=== PATIENT | female | born 1980 | race Caucasian/White ===

== ENCOUNTER → 2018-02-26 09:24 | Outpatient (CLI) | payer OTHER, SELFPAY ==
[2018-02-26 10:07] LABS: Basophils % 0.2 % (0.1-2.0); Eosinophils % 0.6 % (0.1-12.0); Hematocrit 48.8 % (37.0-47.0); Hemoglobin 15.9 g/dL (12.2-16.2); Lymphocytes # 1.9 K/mm3 (0.7-4.5); Lymphocytes % 25.8 K/mm3 (10-50); Mean Corpuscular HGB Conc 32.6 g/dL (31.8-35.4); Mean Corpuscular Hemoglobin 29.3 pg (27.0-31.2); Mean Corpuscular Volume 89.9 fl (81-99); Mean Platelet Volume 7.2 fl (7.4-10.4); Monocytes # 0.4 K/mm3 (0.1-1.0); Monocytes % 4.9 % (1.7-9.3); Neutrophils # 4.9 K/mm3 (1.8-7.8); Neutrophils % 68.5 % (37.0-80.0); Platelet Count 302 K/mm3 (142-424); Red Blood Count 5.43 M/mm3 (4.20-5.40); White Blood Count 7.2 K/mm3 (4.8-10.8)
[2018-02-26 12:09] LABS: Alanine Aminotransferase 20 U/L (12-78); Albumin Level 4.4 gm/dL (3.4-5.0); Albumin/Globulin Ratio 1.3 (1.1-1.8); Alkaline Phosphatase 95 U/L (46-116); Anion Gap 14.1 mEq/L (5-15); Aspartate Amino Transferase 19 U/L (15-37); Bilirubin,Total 0.8 mg/dL (0.2-1.0); Blood Urea Nitrogen 14 mg/dL (7-18); Calcium 9.4 mg/dL (8.5-10.1); Carbon Dioxide 28 mmol/L (21.0-32.0); Chloride 100 mmol/L (98-107); Creatinine,Serum 0.65 mg/dL (0.55-1.02); Estimated Glomerular Filt Rate 102 ml/min (>60); Free T4 (Free Thyroxine) 1.08 ng/dl (0.76-1.46); GFR (African American) 123 ML/MIN (>60); Globulin 3.4 gm/dl (1.3-3.2); Glucose 79 mg/dL (74-106); Potassium 4.1 mmoL/L (3.5-5.1); Sodium 138 mmol/L (136-145); Thyroid Stimulating Hormone 1.22 uIU/ml (0.358-3.740); Total Protein,Serum 7.8 gm/dL (6.4-8.2)
[2018-02-28 10:47] LABS: Vitamin D 25 Hydroxy 24.5 ng/mL (30.0-100.0)
== END ==
PROVIDERS: Visit Provider Nurse Practitioner Family
DX: L65.9 Nonscarring hair loss, unspecified (principal); R53.83 Other fatigue; E55.9 Vitamin D deficiency, unspecified
CPT/HCPCS: 36415; 80053; 82652; 84439; 84443; 85025

== ENCOUNTER → 2018-03-28 12:49 | Outpatient (CLI) | payer OTHER, SELFPAY ==
[2018-03-28 13:20] LABS: Basophils % 0.1 % (0.1-2.0); Eosinophils # 0.1 K/mm3 (0.0-0.4); Eosinophils % 0.6 % (0.1-12.0); Hematocrit 45.9 % (37.0-47.0); Hemoglobin 15.1 g/dL (12.2-16.2); Lymphocytes # 1.9 K/mm3 (0.7-4.5); Lymphocytes % 22.5 K/mm3 (10-50); Mean Corpuscular Hemoglobin 29.3 pg (27.0-31.2); Mean Corpuscular Volume 88.8 fl (81-99); Mean Platelet Volume 6.8 fl (7.4-10.4); Monocytes # 0.3 K/mm3 (0.1-1.0); Monocytes % 3.3 % (1.7-9.3); Neutrophils # 6.2 K/mm3 (1.8-7.8); Neutrophils % 73.4 % (37.0-80.0); Platelet Count 292 K/mm3 (142-424); Red Blood Count 5.16 M/mm3 (4.20-5.40); Red Cell Distribution Width 13.3 % (11.5-17.5); White Blood Count 8.4 K/mm3 (4.8-10.8)
[2018-03-28 14:32] LABS: Alanine Aminotransferase 19 U/L (12-78); Albumin Level 4.3 gm/dL (3.4-5.0); Albumin/Globulin Ratio 1.3 (1.1-1.8); Alkaline Phosphatase 89 U/L (46-116); Anion Gap 12.1 mEq/L (5-15); Aspartate Amino Transferase 16 U/L (15-37); Bilirubin,Total 0.7 mg/dL (0.2-1.0); Blood Urea Nitrogen 11 mg/dL (7-18); Calcium 9.3 mg/dL (8.5-10.1); Carbon Dioxide 31 mmol/L (21.0-32.0); Chloride 100 mmol/L (98-107); Creatinine,Serum 0.66 mg/dL (0.55-1.02); Estimated Glomerular Filt Rate 100 ml/min (>60); Free Thyroxine Index 2.6 ug/dL (5.93-13.13); GFR (African American) 121 ML/MIN (>60); Globulin 3.2 gm/dl (1.3-3.2); Glucose 119 mg/dL (74-106); Potassium 4.1 mmoL/L (3.5-5.1); Sodium 139 mmol/L (136-145); Total Protein,Serum 7.5 gm/dL (6.4-8.2); Triiodothryronine (T3) Uptake 32 % (31-39)
[2018-03-29 18:41] LABS: Estradiol 208.6 pg/mL (.); FSH 6.5 mIU/mL (.); LH 15.4 mIU/mL (.); Triiodothyronine (T3) Free 3.3 pg/mL (2.0-4.4)
[2018-03-31 15:31] LABS: Testosterone,Free 3.9 pg/mL (0.0-4.2)
[2018-04-03 21:09] LABS: Testosterone, Total, LC/MS 37.3 ng/dL (10.0-55.0)
== END ==
PROVIDERS: Visit Provider Nurse Practitioner Obstetrics & Gynecology
DX: N92.6 Irregular menstruation, unspecified (principal); E03.9 Hypothyroidism, unspecified; R53.83 Other fatigue
CPT/HCPCS: 36415; 80053; 82670; 83001; 83002; 84402; 84403; 84436; 84443; 84479; 84481; 85025

== ENCOUNTER → 2018-12-26 10:43 | Outpatient (CLI) | payer SELFPAY ==
--- NOTE | 2018-12-26 10:50 | MM_ITS ---
MM Dig screening mamm BI w/CAD CAD Screening COMPARISON: None, this is baseline INDICATION: There is a history of breast cancer in a patient maternal grandmother and maternal aunt TECHNIQUE: Standard CC and MLO images were obtained. R2 CAD reviewed. FINDINGS: Scattered fibroglandular densities are seen throughout both breasts. There is a mole marker right breast. There is no suspicious lesion in either breast and there are no suspicious microcalcifications. IMPRESSION: Fibrofatty parenchyma no suspicious lesion seen BI-RADS Category: 1 Negative RECOMMENDED FOLLOW-UP: 1YR - 1 YEAR FOLLOW-UP (A letter has been sent to the patient regarding results of the study.)
== END ==
PROVIDERS: PCP Internal Medicine Adolescent Medicine; Visit Provider Nurse Practitioner Obstetrics & Gynecology
DX: Z80.3 Family history of malignant neoplasm of breast (principal); Z12.31 Encounter for screening mammogram for malignant neoplasm of breast
CPT/HCPCS: 77067

== ENCOUNTER → 2020-07-25 13:17 | Outpatient (CLI) | payer OTHER, SELFPAY ==
--- NOTE | 2020-07-25 13:17 | US_ITS ---
PROCEDURE: US TRANSVAGINAL CLINICAL INDICATION: heavy painful periods Full periods COMPARISON: No exams were available for comparison FINDINGS: There are multiple nabothian cyst in the cervix the largest at 1.3 cm. The uterus is 8.7 x 4.9 x 5.6 cm with a combined endometrial thickness 15 mm. There is focal increased echogenicity within the central aspect of the endometrium with a surrounding sonolucent area suspicious for a polyp. The central area of increased echogenicity is 8 x 7 mm. The adnexa are unremarkable. The right ovary is 2.2 x 2.2 cm. The left ovary is 3 x 3 cm. There are small bilateral follicles. No cul-de-sac fluid is evident. IMPRESSION: 1. Thickened endometrium with suspected endometrial polyp at approximately 8 x 7 mm Dictated by: Guilherme Schultz MD 07/25/2020 15:51 Guilherme Schultz MD in [place] 07/25/2020 15:51
== END ==
PROVIDERS: PCP Internal Medicine Adolescent Medicine; Visit Provider Nurse Practitioner Obstetrics & Gynecology
DX: N92.0 Excessive and frequent menstruation with regular cycle (principal); N94.6 Dysmenorrhea, unspecified
CPT/HCPCS: 76830

== ENCOUNTER → 2021-09-21 10:43 | Outpatient (CLI) | payer OTHER, SELFPAY | PROVIDERS: PCP Internal Medicine Adolescent Medicine; Visit Provider Nurse Practitioner | DX: Z20.822 Contact with and (suspected) exposure to COVID-19 (principal); U07.1 COVID-19 | CPT/HCPCS: C9803; U0003; U0005 ==

== ENCOUNTER 2021-09-24 01:03 | Emergency (ER) | payer OTHER, SELFPAY ==
[2021-09-24 01:05] VITALS: BP 141/75; PULSE 120; RESP 18; TEMP 38.3; O2SAT 99; BMI 37.8
--- NOTE | 2021-09-24 01:16 | XR_ITS ---
PROCEDURE INFORMATION: Exam: XR Chest Exam date and time: 09/24/2021 1:16 AM Age: 40 years old Clinical indication: Fever and other: Weakness covid; Additional info: Fever covid TECHNIQUE: Imaging protocol: XR of the chest. Views: 1 view. COMPARISON: No relevant prior studies available. FINDINGS: Lungs: Interstitial haziness in both lungs findings concerning for moderate pneumonia. Low lung volumes. Pleural spaces: Unremarkable. No pleural effusion. No pneumothorax. Heart/Mediastinum: Unremarkable. No cardiomegaly. Bones/joints: Unremarkable. IMPRESSION: Interstitial haziness in both lungs findings concerning for moderate pneumonia.
--- NOTE | 2021-09-24 01:17 | ECG_ITS ---
APPROVED REPORT Exam: Resting ECG HR:98 bpm ECG Measurements Heart Rate 98 AXES HI 114 P 18 QRSd 76 QRS -34 QT 334 T 16 QTc 426 Conclusion Normal sinus rhythm Left axis deviation Abnormal ECG Electronically signed by : Stevenson Dupont MD 09/25/2021 20:20:10
[2021-09-24 01:35] LABS: Basophils % 0.6 % (0.1-2.0); Eosinophils % 0.3 % (0.1-12.0); Hematocrit 43.6 % (37.0-47.0); Hemoglobin 14.9 g/dL (12.2-16.2); Lymphocytes # 0.4 K/mm3 (0.7-4.5); Lymphocytes % 12.4 % (10-50); Mean Corpuscular HGB Conc 34.3 g/dL (31.8-35.4); Mean Corpuscular Hemoglobin 29.8 pg (27.0-31.2); Mean Corpuscular Volume 86.9 fl (81-99); Mean Platelet Volume 7.4 fl (7.4-10.4); Monocytes # 0.2 K/mm3 (0.1-1.0); Monocytes % 5.5 % (1.7-9.3); Neutrophils # 2.9 K/mm3 (1.8-7.8); Neutrophils % 81.2 % (37.0-80.0); Platelet Count 189 K/mm3 (142-424); Red Blood Count 5.02 M/mm3 (4.20-5.40); Red Cell Distribution Width 13.8 % (11.5-17.5); White Blood Count 3.6 K/mm3 (4.8-10.8)
[2021-09-24 01:45] LABS: Chloride 101 mmol/L (98-107); Potassium 3.6 mmoL/L (3.5-5.1); Sodium 135 mmol/L (136-145)
[2021-09-24 01:48] LABS: Alanine Aminotransferase 31 U/L (12-78); Albumin Level 4.4 g/dl (3.5-5.0); Albumin/Globulin Ratio 1.6 (1.1-1.8); Alkaline Phosphatase 90 U/L (38-126); Anion Gap 13.6 mEq/L (5-15); Aspartate Amino Transferase 47 U/L (14-36); Bilirubin,Total 0.4 mg/dl (0.2-1.3); Blood Urea Nitrogen 13 mg/dl (7-17); Calcium 8.5 mg/dl (8.4-10.2); Carbon Dioxide 24 mmol/L (22.0-30.0); Creatinine Clearance Estimated 212 mL/min (50-200); Estimated Glomerular Filt Rate 136 ml/min (>60); GFR (African American) 165 ML/MIN (>60); Globulin 2.8 g/dL (1.3-3.2); Glucose 157 mg/dl (74-100); HCG Qualitative, Serum Negative (Negative); Lactic Acid 1.4 mmol/L (0.7-2.1); Total Protein,Serum 7.2 g/dl (6.3-8.2)
[2021-09-24 02:00] VITALS: BP 116/70; PULSE 92; O2SAT 95
--- NOTE | 2021-09-24 02:22 | HMH.EDGENADL ---
ED Disposition Clinical Impression: Pneumonia due to COVID-19 virus, Superimposed infection Disposition: Home, Self-Care Condition on Discharge: Good Instructions: Pneumonia-Adult Additional Instructions: Please continue supportive care at home including drinking plenty of fluids, ibuprofen, Tylenol and Zofran for nausea and vomiting. You have also been prescribed antibiotics for suspected superimposed bacterial infection in addition to your COVID-19 pneumonia. Please take antibiotics as prescribed. If your condition worsens or any of concerning symptoms that we discussed arise, such as but not limited to, inability to tolerate intake by mouth, development of chest pain, development of dyspnea, development of unilateral leg swelling, please return promptly to the nearest emergency department for reassessment. Otherwise, please see your primary care doctor within 1 week to assess for improvement. Referrals: Stevenson Dupont MD [Primary Care Provider] - - Critical Care Critical Care Time: No Attestation: On 09/24/21, the high probability of a clinically significant, sudden or life threatening deterioration of the following system(s) required my full and direct attention, intervention and personal management. The time I documented below is in addition to time spent performing reported procedures but includes the following listed in this critical care notation. Medical Decision Making - Beny Inquiry Pt receiving controlled substance: No Vital Signs: 09/24/21 01:05 09/24/21 02:00 Temperature 100.9 F H Temperature Source Oral Pulse Rate 92 H Pulse Rate [Right] 120 H Respiratory Rate 18 Blood Pressure 116/70 Blood Pressure [Right Arm] 141/75 H Blood Pressure Mean 82 Blood Pressure Mean [Right Arm] 97 02 Sat by Pulse Oximetry 99 95 - Lab Data Lab results reviewed: Yes: I reviewed the patient's lab results. Lab Results 09/24/21 01:27: WBC 3.6 L, RBC 5.02, Hgb 14.9, Hct 43.6, MCV 86.9, MCH 29.8, MCHC 34.3, RDW 13.8, Plt Count 189, MPV 7.4, Neut % (Auto) 81.2 H, Lymph % (Auto) 12.4, [place] % (Auto) 5.5, Eos % (Auto) 0.3, Baso % (Auto) 0.6, Neut # (Auto) 2.9, Lymph # (Auto) 0.4 L, [place] # (Auto) 0.2, Eos # (Auto) 0.0, Baso # (Auto) 0.0 09/24/21 01:27: Sodium 135 L, Potassium 3.6, Chloride 101, Carbon Dioxide 24, Anion Gap 13.6, BUN 13, Creatinine 0.50 L, Estimated Creat Clear 212, Estimated GFR 136, Est GFR ( Amer) 165, Glucose 157 H, Calcium 8.5, Total Bilirubin 0.4, AST 47 H, ALT 31, Alkaline Phosphatase 90, Total Protein 7.2, Albumin 4.4, Globulin 2.8, Albumin/Globulin Ratio 1.6 09/24/21 01:27: Serum HCG, Qual Negative 09/24/21 01:27: Lactate 1.4 Result diagrams: 09/24/21 01:27 09/24/21 01:27 Orders (Tests/Meds): ED MEDICATIONS Generic Name Dose Route Start Last Admin Trade Name Freq PRN Reason Stop Dose Admin Lactated Ringer's 1,000 mls @ 999 mls/hr 09/24/21 01:30 09/24/21 01:25 Lactated Ringer's 1000 Ml Bag IV 09/24/21 02:30 999 mls/hr .Q1H1M CARLIE Administration Discontinued Medications Generic Name Dose Route Start Last Admin Trade Name Freq PRN Reason Stop Dose Admin Acetaminophen 1,000 mg 09/24/21 01:18 09/24/21 01:25 Acetaminophen 500mg Tab PO 09/24/21 01:19 1,000 mg ONCE ONE Administration Ketorolac Tromethamine 15 mg 09/24/21 01:18 09/24/21 01:24 Ketorolac 30mg/Ml Vial IV 09/24/21 01:19 15 mg ONCE ONE Administration Ondansetron HCl 4 mg 09/24/21 01:25 09/24/21 01:26 Ondansetron 4mg/2ml Vial IV 09/24/21 01:26 4 mg ONCE ONE Administration - Radiology Data #1 Image(s): Chest, Other FINDINGS: Lungs: Interstitial haziness in both lungs findings concerning for moderate pneumonia. Low lung volumes. Pleural spaces: Unremarkable. No pleural effusion. No pneumothorax. Heart/Mediastinum: Unremarkable. No cardiomegaly. Bones/joints: Unremarkable. IMPRESSION: Interstitial haziness in both lungs findings concer
[2021-09-24 02:30] VITALS: BP 105/65; PULSE 89; O2SAT 95
[2021-09-24 03:19] VITALS: BP 107/65; PULSE 87; RESP 20; TEMP 37.2; O2SAT 96
== END 2021-09-24 04:00 | disposition home or self-care (01) ==
PROVIDERS: Emergency Provider Emergency Medicine; PCP Internal Medicine Adolescent Medicine
DX: U07.1 COVID-19 (principal); J12.82 Pneumonia due to coronavirus disease 2019
CPT/HCPCS: 71045; 80053; 83605; 84703; 85025; 93005; 96365; 96375; 99283; J2405

== ENCOUNTER 2021-09-25 03:35 | Emergency (ER) | payer OTHER, SELFPAY ==
[2021-09-25] VITALS (14 sets, daily range): BP systolic 123–148; BP diastolic 64–97; PULSE 93–107; RESP 16–18; TEMP 37.6; O2SAT 94–100; BMI 27.4
--- NOTE | 2021-09-25 04:13 | HMH.EDGENADL ---
ED Disposition Condition on Discharge: Good - Critical Care Critical Care Time: No <Ave [place] - Last Filed: 09/25/21 08:22> Condition on Discharge: Good - Critical Care Critical Care Time: No <Heri Sullivan - Last Filed: 09/25/21 09:38> Clinical Impression: COVID-19, Dehydration Nausea & vomiting Qualifiers: Vomiting type: unspecified Vomiting Intractability: non-intractable Qualified Code(s): R11.2 - Nausea with vomiting, unspecified Disposition: Home, Self-Care Instructions: DI for Nausea -- Adult Additional Instructions: Tinea supportive care at home including Tylenol, ibuprofen. For nausea and vomiting you may take Zofran together with Phenergan. If your condition worsens or any other concerning symptoms arise, please return to the emergency department. Otherwise, please follow-up with your primary care doctor next week. Prescriptions: Promethazine HCl [Phenergan 25mg tab] 25 mg PO BID #20 tab Transmission Status: Pending to [facility] Referrals: Stevenson Dupont MD [Primary Care Provider] - Attestation: On 09/25/21, the high probability of a clinically significant, sudden or life threatening deterioration of the following system(s) required my full and direct attention, intervention and personal management. The time I documented below is in addition to time spent performing reported procedures but includes the following listed in this critical care notation. Medical Decision Making - Medical Records Medical records reviewed: Yes: I reviewed the patient's medical records. - Beny Inquiry Pt receiving controlled substance: No - Lab Data Lab results reviewed: Yes: I reviewed the patient's lab results. <Ave [place] - Last Filed: 09/25/21 08:22> - Reevaluation(s) Time: 09:36 <Heri Sullivan - Last Filed: 09/25/21 09:38> Vital Signs: 09/25/21 03:36 09/25/21 04:00 09/25/21 04:30 Temperature 99.6 F Temperature Source Oral Pulse Rate 96 H 93 H Pulse Rate [Right] 107 H Respiratory Rate 16 Blood Pressure 144/86 H 142/83 H Blood Pressure [Right Arm] 148/97 H Blood Pressure Mean 105 107 Blood Pressure Mean [Right Arm] 114 02 Sat by Pulse Oximetry 96 96 97 09/25/21 05:00 09/25/21 05:30 09/25/21 06:00 Temperature Temperature Source Pulse Rate 107 H 95 H 93 H Pulse Rate [Right] Respiratory Rate Blood Pressure 126/84 126/73 148/69 H Blood Pressure [Right Arm] Blood Pressure Mean 98 89 94 Blood Pressure Mean [Right Arm] 02 Sat by Pulse Oximetry 96 96 100 Orders (Tests/Meds): ED MEDICATIONS Discontinued Medications Generic Name Dose Route Start Last Admin Trade Name Juanito PRN Reason Stop Dose Admin Lactated Ringer's 1,000 mls @ 999 mls/hr 09/25/21 04:00 09/25/21 04:02 Lactated Ringer's 1000 Ml Bag IV 09/25/21 05:00 999 mls/hr .Q1H1M CARLIE Administration Promethazine HCl 12.5 mg 09/25/21 03:53 09/25/21 04:02 Promethazine Hcl 25mg/Ml 1ml Vial IV 09/25/21 03:54 12.5 mg ONCE ONE Administration Promethazine HCl 12.5 mg 09/25/21 05:41 09/25/21 05:43 Promethazine Hcl 25mg/Ml 1ml Vial IV 09/25/21 05:42 12.5 mg ONCE ONE Administration Scopolamine 1 each 09/25/21 07:07 09/25/21 07:47 Scopolamine 1.5mg/72hrs Patch TD 09/25/21 07:08 1 each ONCE ONE Administration Sodium Chloride 25 ml 09/25/21 03:53 09/25/21 04:02 Sodium Chloride 0.9% 25ml Bag IV 09/25/21 03:54 25 ml ONCE ONE Administration Sodium Chloride 25 ml 09/25/21 05:41 09/25/21 05:44 Sodium Chloride 0.9% 25ml Bag IV 09/25/21 05:42 25 ml ONCE ONE Administration ORDERS Category Date Time Status EKG Request [ECG Request by /Hodan] Stat Y 09/25/21 07:09 Ordered - Reevaluation(s) Reevaluation #1: On reevaluation, the patient is able to tolerate oral intake at this time. Repeat abdominal examination is benign. Hemodynamics have improved. I did explain to the patient that we will pl
--- NOTE | 2021-09-25 09:18 | PC.NURSE ---
pt able to take a few bites of crackers and sips of juice and able to tolerate well
== END 2021-09-25 09:54 | disposition home or self-care (01) ==
PROVIDERS: Emergency Provider Emergency Medicine; PCP Internal Medicine Adolescent Medicine
DX: E86.0 Dehydration (principal); U07.1 COVID-19
CPT/HCPCS: 96365; 96375; 96376; 99282

== ENCOUNTER 2021-09-29 12:20 | Observation (INO) | payer OTHER, SELFPAY ==
[2021-09-29 12:40] VITALS: BMI 34.4
[2021-09-29 12:41] VITALS: BP 143/100; PULSE 112; RESP 16; TEMP 36.8; O2SAT 96
--- NOTE | 2021-09-29 12:54 | CT_ITS ---
PROCEDURE INFORMATION: Exam: CTA Chest With Contrast Exam date and time: 09/29/2021 12:54 PM Age: 40 years old Clinical indication: Cough and dyspnea; Patient HX: Covid PT with SOA; Additional info: SOA, covid TECHNIQUE: Imaging protocol: Computed tomographic angiography of the chest with contrast. 3D rendering (Not supervised by radiologist): MIP and/or 3D reconstructed images were created by the technologist. Radiation optimization: All CT scans at this facility use at least one of these dose optimization techniques: automated exposure control; mA and/or kV adjustment per patient size (includes targeted exams where dose is matched to clinical indication); or iterative reconstruction. Contrast material: ISOVUE; Contrast volume: 70 ml; Contrast route: INTRAVENOUS (IV); COMPARISON: CR XR CHEST PORTABLE 09/24/2021 1:55 AM FINDINGS: Pulmonary arteries: Normal. No pulmonary emboli. Aorta: Unremarkable. No aortic aneurysm. No aortic dissection. Lungs: Bilateral ground-glass and consolidative airspace opacities. Pleural spaces: Unremarkable. No pneumothorax. No pleural effusion. Heart: Unremarkable. No cardiomegaly. No pericardial effusion. Lymph nodes: Unremarkable. No enlarged lymph nodes. Liver: Multiple hepatic cysts are seen. Spleen: Left upper quadrant splenule. Bones/joints: Unremarkable. No acute fracture. Soft tissues: Unremarkable. IMPRESSION: 1. No pulmonary emboli identified. 2. Multilobar pneumonia.
--- NOTE | 2021-09-29 13:08 | P.CONPHA_ITS ---
[facility] Pharm[facility] VTE Monitoring - Patient Demographics Admission date: 09/29/21 Report Date: 09/29/21 Time: 13:08 Allergies/Adverse Reactions: Patient Allergies No Known Allergies Allergy (Verified 08/17/20 13:46) Height: 1.55 m Weight: 82.554 kg - VTE Risk VTE Risk Level: Low Risk Clinical Trial Participant: No - Prophylaxis VTE Prophylaxis Ordered?: Yes Types of VTE Prophylaxis: TEDS Knee High
--- NOTE | 2021-09-29 13:25 | HMH.ITSTN ---
TALKED TO NURSE ESQUEDA, PT HAS NO IV AT THIS TIME, WILL CALL BACK WHEN IV IS OBTAINED.
[2021-09-29 13:55] LABS: Chloride 101 mmol/L (98-107)
[2021-09-29 13:56] LABS: Basophils % 0.6 % (0.1-2.0); Eosinophils % 0.1 % (0.1-12.0); Hematocrit 46.3 % (37.0-47.0); Hemoglobin 15.8 g/dL (12.2-16.2); Lymphocytes # 0.6 K/mm3 (0.7-4.5); Lymphocytes % 17.9 % (10-50); Mean Corpuscular HGB Conc 34.1 g/dL (31.8-35.4); Mean Corpuscular Hemoglobin 29.2 pg (27.0-31.2); Mean Corpuscular Volume 85.6 fl (81-99); Monocytes # 0.3 K/mm3 (0.1-1.0); Monocytes % 7.1 % (1.7-9.3); Neutrophils # 2.6 K/mm3 (1.8-7.8); Neutrophils % 74.3 % (37.0-80.0); Platelet Count 257 K/mm3 (142-424); Potassium 3.2 mmoL/L (3.5-5.1); Red Blood Count 5.41 M/mm3 (4.20-5.40); Red Cell Distribution Width 13.8 % (11.5-17.5); Sodium 140 mmol/L (136-145); White Blood Count 3.5 K/mm3 (4.8-10.8)
[2021-09-29 13:58] LABS: Alanine Aminotransferase 25 U/L (12-78); Alkaline Phosphatase 71 U/L (38-126); Aspartate Amino Transferase 37 U/L (14-36); Blood Urea Nitrogen 18 mg/dl (7-17); Creatinine Clearance Estimated 161 mL/min (50-200); Estimated Glomerular Filt Rate 110 ml/min (>60); GFR (African American) 133 ML/MIN (>60)
[2021-09-29 13:59] LABS: Albumin/Globulin Ratio 1.3 (1.1-1.8); Anion Gap 15.2 mEq/L (5-15); Calcium 8.5 mg/dl (8.4-10.2); Carbon Dioxide 27 mmol/L (22.0-30.0); Globulin 3.1 g/dL (1.3-3.2); Glucose 98 mg/dl (74-100); Magnesium 2.1 mg/dl (1.6-2.3); Total Protein,Serum 7.1 g/dl (6.3-8.2)
--- NOTE | 2021-09-29 15:01 | HMH.ITSTN ---
PER YIN STILL NO IV OBTAINED AT THIS TIME
--- NOTE | 2021-09-29 15:11 | ECG_ITS ---
APPROVED REPORT Exam: Resting ECG HR:96 bpm ECG Measurements Heart Rate 96 AXES CO 136 P 42 QRSd 84 QRS -6 QT 364 T 6 QTc 459 Conclusion Normal sinus rhythm Normal ECG Electronically signed by : Stevenson Dupont MD 09/30/2021 19:28:22
--- NOTE | 2021-09-29 15:38 | HMH.PHAINT ---
MEDICATION RECONCILIATION COMPLETED ON PATIENT USING EXTERNAL FILL HISTORY FROM PHARMACY AND CALLING [facility]. TRAZODONE WAS ON PATIENT'S LIST, BUT HAS NOT FILLED SINCE MARCH OF THIS YEAR FOR 30 DAY SUPPLY. REMOVED THIS MEDICATION FROM LIST. -SABRA BAEZD
--- NOTE | 2021-09-29 17:34 | HMH.HP ---
*Admission Date: 09/29/21 *Chief complaint: covid, weakness *History of present illness: 40-year-old female with history of obesity, anxiety/depression, and asthma. Seen in the office today for worsening fatigue, nausea and vomiting, Covid symptoms. Patient was diagnosed with Covid on 09/21. Has had worsening nausea, vomiting, diarrhea over the past week. Unable to keep very much down. Difficult time staying hydrated. Decreased urine output. Afebrile today in the office but appears quite weak, tachycardic, and dehydrated. Decision made to directly admit for dehydration, weakness, sequela of COVID-19. [facility] History I have reviewed the patient's past medical history: Yes Medical History: Denies:: Cancer, Diabetes Mellitus Type 1, Diabetes Mellitus Type 2, MRSA *Have you ever received a pneumonia vaccine?: No *Have you received a flu vaccine this season?: No Laterality Cases: Bilateral: Myringotomy (Ear Tubes), Tonsillectomy Other Surgeries: Yes: Amputation: No Fractures: No - *Social History Last grade of school completed: Some college Smoking Status: Never smoker Alcohol Intake: former Alcohol Intake Frequency:: a few times a week Substance Use Type: denies use *Occupational Status:: unemployed Household Members: spouse, children *Travel in the last 8 weeks: Outside the [facility] Family Hx:: Cancer, Heart Attack Review of Systems - Review of Systems Review of systems:: pertinent systems reviewed and negative unless documented below (14 point review of systems performed, pertinent positives and negatives as per HPI) Meds Home Medications Medication Instructions Recorded Confirmed Type Amoxicillin/Potassium Clav 1 tab PO BID 09/29/21 09/29/21 History [Amox-Clav 875-125 mg Tablet] Doxycycline Monohydrate 100 mg PO BID 09/29/21 09/29/21 History [Doxycycline Sublette 100mg Tab] Promethazine HCl [Phenergan 25mg 25 mg PO BID 09/29/21 09/29/21 History tab] Allergies Allergy/AdvReac Type Severity Reaction Status Date / Time No Known Allergies Allergy Verified 08/17/20 13:46 Exam Vital signs and Labs for Last 24 Hours: Temp Pulse Resp BP Pulse Ox 98.2 F 112 H 16 143/100 H 96 09/29/21 12:41 09/29/21 12:41 09/29/21 12:41 09/29/21 12:41 09/29/21 12:41 Laboratory Results - last 24 hr 09/29/21 11:30: WBC 3.5 L, RBC 5.41 H, Hgb 15.8, Hct 46.3, MCV 85.6, MCH 29.2, MCHC 34.1, RDW 13.8, Plt Count 257, MPV 8.0, Neut % (Auto) 74.3, Lymph % (Auto) 17.9, [place] % (Auto) 7.1, Eos % (Auto) 0.1, Baso % (Auto) 0.6, Neut # (Auto) 2.6, Lymph # (Auto) 0.6 L, [place] # (Auto) 0.3, Eos # (Auto) 0.0, Baso # (Auto) 0.0 09/29/21 11:30: Sodium 140, Potassium 3.2 L, Chloride 101, Carbon Dioxide 27, Anion Gap 15.2 H, BUN 18 H, Creatinine 0.60, Estimated Creat Clear 161, Estimated GFR 110, Est GFR ( Amer) 133, Glucose 98, Calcium 8.5, Magnesium 2.1, Total Bilirubin 1.0, AST 37 H, ALT 25, Alkaline Phosphatase 71, Total Protein 7.1, Albumin 4.0, Globulin 3.1, Albumin/Globulin Ratio 1.3 I & O for Last 24 hours: Intake & Output 09/26/21 09/27/21 09/28/21 09/29/21 23:59 23:59 23:59 23:59 Weight 82.554 kg - Constitutional mild distress, obese - *Routine HEENT Exam Head: Present: normocephalic Eye: Present: EOMI, PERRL ENT: Present: mucous membranes dry - *Routine Neck Exam Present: supple. Absent: lymphadenopathy - *Routine Respiratory Exam Present: CTA bilaterally - *Routine Cardiovascular Exam Present: tachycardia - *Routine Abdominal Exam Present: soft, normoactive bowel sounds, tenderness (Nonfocal tenderness) - *Routine Rectal Exam Rectal:: deferred - *Routine Genitalia Exam Genitalia:: deferred - *Routine Extremities Exam Absent: cyanosis, clubbing, edema - *Routine Skin Exam Present: warm. Absent: rash - *Routine Neurological Exam Present: alert, oriented X3 Assessment and Plan (1) COVID-19 Status: Acute Category: Medical
--- NOTE | 2021-09-29 17:55 | PC.NURSE ---
Patient is non tele and on room air. Patient is up ad-drake/standby assist. Alert and oriented times 4. CTA chest complete. Bed in lowest position and phone and call light in reach. Will continue to monitor.
[2021-09-29 19:42] VITALS: BP 148/92; PULSE 90; RESP 18; TEMP 36.7; O2SAT 96
[2021-09-29 20:00] VITALS: RESP 19; O2SAT 96
[2021-09-30] VITALS: BP 146/88; PULSE 97; RESP 16; TEMP 36.6; O2SAT 95
--- NOTE | 2021-09-30 02:30 | PC.NURSE ---
Patient was given and educated on IS. Instructed to use 10-15x while awake every hour.
[2021-09-30 04:00] VITALS: BP 162/98; PULSE 116; RESP 21; TEMP 36.5; O2SAT 93
[2021-09-30 05:31] VITALS: BMI 34.7
[2021-09-30 08:00] VITALS: BP 122/73; PULSE 82; RESP 20; TEMP 36.8; O2SAT 93
[2021-09-30 08:14] LABS: Basophils % 0.5 % (0.1-2.0); Eosinophils % 0.2 % (0.1-12.0); Hematocrit 40.4 % (37.0-47.0); Lymphocytes # 0.7 K/mm3 (0.7-4.5); Mean Corpuscular HGB Conc 33.8 g/dL (31.8-35.4); Mean Corpuscular Volume 85.8 fl (81-99); Mean Platelet Volume 7.6 fl (7.4-10.4); Monocytes # 0.2 K/mm3 (0.1-1.0); Monocytes % 5.8 % (1.7-9.3); Neutrophils % 75.5 % (37.0-80.0); Platelet Count 268 K/mm3 (142-424); Red Blood Count 4.71 M/mm3 (4.20-5.40); Red Cell Distribution Width 13.8 % (11.5-17.5); White Blood Count 3.9 K/mm3 (4.8-10.8)
[2021-09-30 08:18] LABS: Hemoglobin 13.7 g/dL (12.2-16.2)
[2021-09-30 08:19] LABS: Chloride 103 mmol/L (98-107); Potassium 3.4 mmoL/L (3.5-5.1); Sodium 138 mmol/L (136-145)
[2021-09-30 08:21] LABS: Blood Urea Nitrogen 15 mg/dl (7-17); Creatinine Clearance Estimated 195 mL/min (50-200); Estimated Glomerular Filt Rate 136 ml/min (>60); GFR (African American) 165 ML/MIN (>60)
[2021-09-30 08:22] LABS: Anion Gap 12.4 mEq/L (5-15); Carbon Dioxide 26 mmol/L (22.0-30.0); Glucose 89 mg/dl (74-100); Magnesium 1.9 mg/dl (1.6-2.3)
--- NOTE | 2021-09-30 08:40 | P.PN_ITS ---
Internal Medicine - PN: Subj *Date: 09/30/21 *Time: 08:40 Interval history: Patient has been breathing comfortably on room air. Complaints of significant weakness and nausea, has been able to swallow pills however without vomiting. Had some loose stool but no blood or mucus through the day yesterday. Exam Vital signs and Labs for Last 24 Hours: Temp Pulse Resp BP Pulse Ox 97.7 F 116 H 21 162/98 H 93 L 09/30/21 04:00 09/30/21 04:00 09/30/21 04:00 09/30/21 04:00 09/30/21 04:00 Laboratory Results - last 24 hr 09/29/21 11:30: WBC 3.5 L, RBC 5.41 H, Hgb 15.8, Hct 46.3, MCV 85.6, MCH 29.2, MCHC 34.1, RDW 13.8, Plt Count 257, MPV 8.0, Neut % (Auto) 74.3, Lymph % (Auto) 17.9, [place] % (Auto) 7.1, Eos % (Auto) 0.1, Baso % (Auto) 0.6, Neut # (Auto) 2.6, Lymph # (Auto) 0.6 L, [place] # (Auto) 0.3, Eos # (Auto) 0.0, Baso # (Auto) 0.0 09/29/21 11:30: Sodium 140, Potassium 3.2 L, Chloride 101, Carbon Dioxide 27, Anion Gap 15.2 H, BUN 18 H, Creatinine 0.60, Estimated Creat Clear 161, Estimated GFR 110, Est GFR ( Amer) 133, Glucose 98, Calcium 8.5, Magnesium 2.1, Total Bilirubin 1.0, AST 37 H, ALT 25, Alkaline Phosphatase 71, Total Protein 7.1, Albumin 4.0, Globulin 3.1, Albumin/Globulin Ratio 1.3 09/30/21 07:55: WBC 3.9 L, RBC 4.71, Hgb 13.7 D, Hct 40.4, MCV 85.8, MCH 29.0, MCHC 33.8, RDW 13.8, Plt Count 268, MPV 7.6, Neut % (Auto) 75.5, Lymph % (Auto) 18.0, [place] % (Auto) 5.8, Eos % (Auto) 0.2, Baso % (Auto) 0.5, Neut # (Auto) 3.0, Lymph # (Auto) 0.7, [place] # (Auto) 0.2, Eos # (Auto) 0.0, Baso # (Auto) 0.0 09/30/21 07:55: Sodium 138, Potassium 3.4 L, Chloride 103, Carbon Dioxide 26, Anion Gap 12.4, BUN 15, Creatinine 0.50 L, Estimated Creat Clear 195, Estimated GFR 136, Est GFR ( Amer) 165 D, Glucose 89, Calcium 8.0 L, Magnesium 1.9 I & O for Last 24 hours: Intake & Output 09/27/21 09/28/21 09/29/21 09/30/21 11:59 11:59 11:59 11:59 Intake Total 754 / 754 Balance 754 / 754 Weight 184 lb Microbiology Reports for the Last 24 Hours: Microbiology 09/29/21 13:50 Nasopharyngeal Coronavirus COVID-19 PCR - Final Narrative: Patient is alert, appears weak. No rash. Breathing easily. Heart rate regular. Abdomen soft nontender, no edema or clubbing, neurologic exam nonfocal but compromised by lack of effort from the patient who feels very weak. Assessment and Plan (1) COVID-19 Status: Acute Category: Medical Code(s): U07.1 - COVID-19 (2) Dehydration Status: Acute Category: Medical Code(s): E86.0 - Dehydration (3) Nausea & vomiting Status: Acute Qualifiers: Vomiting type: unspecified Vomiting Intractability: non-intractable Qualified Code(s): R11.2 - Nausea with vomiting, unspecified Category: Medical Code(s): R11.2 - Nausea with vomiting, unspecified (4) Insomnia Status: Chronic Category: Medical Code(s): G47.00 - Insomnia, unspecified - Assessment and plan all Dx Assessment and Plan for all problems:: Plan to add dexamethasone for weakness, inflammation effect. CTA of chest negative. Potassium levels improving. Check labs tomorrow. When patient is able to eat she will be able to be discharged.
[2021-09-30 12:00] VITALS: BP 130/87; PULSE 97; RESP 18; TEMP 36.9; O2SAT 93
[2021-09-30 16:00] VITALS: BP 148/96; PULSE 88; RESP 16; TEMP 37; O2SAT 94
[2021-09-30 20:00] VITALS: BP 164/92; PULSE 92; RESP 20; TEMP 37.1; O2SAT 92
[2021-10-01] VITALS: BP 145/88; PULSE 84; RESP 19; TEMP 36.8; O2SAT 92
[2021-10-01 04:00] VITALS: BP 155/94; PULSE 88; RESP 19; TEMP 36.6; O2SAT 91
[2021-10-01 04:39] VITALS: BMI 34.7
[2021-10-01 04:54] VITALS: BMI 36.0
[2021-10-01 08:00] VITALS: BP 140/92; PULSE 90; RESP 18; TEMP 37.1; O2SAT 91
[2021-10-01 08:00] LABS: Basophils % 0.3 % (0.1-2.0); Hematocrit 39.3 % (37.0-47.0); Hemoglobin 13.4 g/dL (12.2-16.2); Lymphocytes # 0.6 K/mm3 (0.7-4.5); Lymphocytes % 11.9 % (10-50); Mean Corpuscular Hemoglobin 29.3 pg (27.0-31.2); Mean Corpuscular Volume 86.1 fl (81-99); Mean Platelet Volume 8.3 fl (7.4-10.4); Monocytes # 0.2 K/mm3 (0.1-1.0); Monocytes % 3.9 % (1.7-9.3); Neutrophils # 4.4 K/mm3 (1.8-7.8); Neutrophils % 83.8 % (37.0-80.0); Platelet Count 283 K/mm3 (142-424); Red Blood Count 4.57 M/mm3 (4.20-5.40); Red Cell Distribution Width 13.8 % (11.5-17.5); White Blood Count 5.3 K/mm3 (4.8-10.8)
--- NOTE | 2021-10-01 08:06 | HMH.DCSUM ---
General - General Admission date:: 09/29/21 Discharge date: 10/01/21 HPI HPI: 40-year-old female with history of obesity, anxiety/depression, and asthma. Seen in the office today for worsening fatigue, nausea and vomiting, Covid symptoms. Patient was diagnosed with Covid on 09/21. Has had worsening nausea, vomiting, diarrhea over the past week. Unable to keep very much down. Difficult time staying hydrated. Decreased urine output. Afebrile today in the office but appears quite weak, tachycardic, and dehydrated. Decision made to directly admit for dehydration, weakness, sequela of COVID-19. Hospital Course Hospital Course: Patient was admitted, given IV fluids. He did not require oxygen. She was weak throughout her hospital stay but improved slightly over the last 12 hours. She was given dexamethasone for inflammatory effect issues and Zofran for nausea. She was able to get up in a chair yesterday and do most of her own self-care activities through the day yesterday and this morning. This morning she is feeling better but still weak. Plan will be to discharge home on dexamethasone, Zofran, instructions given re: bed rest and vitamins. We will see her back in our office in the next 4 to 5 weeks for wellness evaluation and further follow-up. Objective Vital signs: Temp Pulse Resp BP Pulse Ox 97.8 F 88 19 155/94 H 91 L 10/01/21 04:00 10/01/21 04:00 10/01/21 04:00 10/01/21 04:00 10/01/21 04:00 no acute distress - *Routine HEENT Exam Head: Present: normocephalic Eye: Present: EOMI, PERRL ENT: Present: mucous membranes moist - *Routine Neck Exam Present: supple - *Routine Respiratory Exam Present: CTA bilaterally - *Routine Cardiovascular Exam Present: RRR - *Routine Abdominal Exam Present: soft, normoactive bowel sounds. Absent: tenderness - *Routine Extremities Exam Absent: cyanosis, clubbing, edema - *Routine Skin Exam Present: warm. Absent: rash - Detailed Eye Exam Eyelids: Bilateral normal inspection Results Labs on day of discharge: Labs from last 24 hours 10/01/21 09/30/21 09/30/21 07:09 07:55 07:55 WBC 5.3 D 3.9 L RBC 4.57 4.71 Hgb 13.4 13.7 D Hct 39.3 40.4 MCV 86.1 85.8 MCH 29.3 29.0 MCHC 34.0 33.8 RDW 13.8 13.8 Plt Count 283 268 MPV 8.3 7.6 Neut % (Auto) 83.8 H 75.5 Lymph % (Auto) 11.9 18.0 [place] % (Auto) 3.9 5.8 Eos % (Auto) 0.0 L 0.2 Baso % (Auto) 0.3 0.5 Neut # (Auto) 4.4 3.0 Lymph # (Auto) 0.6 L 0.7 [place] # (Auto) 0.2 0.2 Eos # (Auto) 0.0 0.0 Baso # (Auto) 0.0 0.0 Sodium 138 Potassium 3.4 L Chloride 103 Carbon Dioxide 26 Anion Gap 12.4 BUN 15 Creatinine 0.50 L Estimated Creat Clear 195 Estimated GFR 136 Est GFR ( Amer) 165 D Glucose 89 Calcium 8.0 L Magnesium 1.9 DS: Diagnosis - Discharge Diagnosis (1) COVID-19 Status: Acute (2) Dehydration Status: Acute (3) Nausea & vomiting Status: Acute (4) Insomnia Status: Chronic Discharge Plan - Patient Discharge Instructions ACTIVITY: Continue current activity DIET: continue same diet Patient Instructions: Pneumonia-Adult, DI for Pneumonia -- Adult, DI for COVID-19 (Suspected or Confirmed ), Preventing the Spread of Coronavirus Discharge Instructions, Nutrition and Hydration: [employer] in the Fight Against COVID-19 - Follow up Plan Follow up with: Madelyn Duarte APRN [Nurse Practitioner] - 10/24/21 8:30 am Disposition: Home, Self-Care Condition at discharge:: Improved Home Medications: Home Medications Medication Instructions Recorded Confirmed Type Amoxicillin/Potassium Clav 1 tab PO BID 09/29/21 09/29/21 History [Amox-Clav 875-125 mg Tablet] Doxycycline Monohydrate 100 mg PO BID 09/29/21 09/29/21 History [Doxycycline [place] 100mg Tab] Promethazine HCl [Phenergan 25mg 25 mg PO BID 09/29/21 09/29/21 History tab]
[2021-10-01 08:30] LABS: Anion Gap 10.7 mEq/L (5-15); Blood Urea Nitrogen 13 mg/dl (7-17); Calcium 8.4 mg/dl (8.4-10.2); Carbon Dioxide 26 mmol/L (22.0-30.0); Chloride 105 mmol/L (98-107); Creatinine Clearance Estimated 202 mL/min (50-200); Estimated Glomerular Filt Rate 136 ml/min (>60); GFR (African American) 165 ML/MIN (>60); Glucose 135 mg/dl (74-100); Potassium 3.7 mmoL/L (3.5-5.1); Sodium 138 mmol/L (136-145)
--- NOTE | 2021-10-01 11:14 | PC.NURSE ---
Pt arrived to the floor at this time
== END 2021-10-01 11:35 | disposition home or self-care (01) ==
PROVIDERS: Internal Medicine Adolescent Medicine; Admitting Provider Internal Medicine Adolescent Medicine; PCP Internal Medicine Adolescent Medicine; Visit Provider Internal Medicine Adolescent Medicine
DX: U07.1 COVID-19 (principal); E86.0 Dehydration; Z79.899 Other long term (current) drug therapy; R11.2 Nausea with vomiting, unspecified; G47.00 Insomnia, unspecified
CPT/HCPCS: 36415; 71275; 80048; 80053; 83735; 85025; 93005; C9803; G0378; J2405; Q9967; U0003; U0005

== ENCOUNTER → 2021-11-07 11:33 | Outpatient (CLI) | payer OTHER, SELFPAY ==
[2021-11-07 12:14] LABS: Basophils # 0.1 K/mm3 (0-0.2); Basophils % 0.8 % (0.1-2.0); Eosinophils # 0.1 K/mm3 (0.0-0.4); Eosinophils % 0.9 % (0.1-12.0); Hematocrit 45.2 % (37.0-47.0); Hemoglobin 14.8 g/dL (12.2-16.2); Lymphocytes # 1.8 K/mm3 (0.7-4.5); Lymphocytes % 26.3 % (10-50); Mean Corpuscular HGB Conc 32.7 g/dL (31.8-35.4); Mean Corpuscular Volume 91.7 fl (81-99); Mean Platelet Volume 7.2 fl (7.4-10.4); Monocytes # 0.4 K/mm3 (0.1-1.0); Monocytes % 5.7 % (1.7-9.3); Neutrophils # 4.4 K/mm3 (1.8-7.8); Neutrophils % 66.2 % (37.0-80.0); Platelet Count 257 K/mm3 (142-424); Red Blood Count 4.93 M/mm3 (4.20-5.40); Red Cell Distribution Width 14.9 % (11.5-17.5); White Blood Count 6.6 K/mm3 (4.8-10.8)
[2021-11-07 12:35] LABS: Alanine Aminotransferase 35 U/L (12-78); Albumin Level 4.3 g/dl (3.5-5.0); Albumin/Globulin Ratio 1.8 (1.1-1.8); Alkaline Phosphatase 76 U/L (38-126); Anion Gap 10.9 mEq/L (5-15); Aspartate Amino Transferase 31 U/L (14-36); Bilirubin,Total 0.6 mg/dl (0.2-1.3); Blood Urea Nitrogen 10 mg/dl (7-17); Calcium 9.3 mg/dl (8.4-10.2); Carbon Dioxide 26 mmol/L (22.0-30.0); Chloride 104 mmol/L (98-107); Chol/HDL Ratio 4.9 (1-3.5); Cholesterol 193 mg/dl (140-200); Estimated Glomerular Filt Rate 110 ml/min (>60); GFR (African American) 133 ML/MIN (>60); Globulin 2.4 g/dL (1.3-3.2); Glucose 103 mg/dl (74-100); HDL Cholesterol 39 mg/dl (40-60); Potassium 3.9 mmoL/L (3.5-5.1); Sodium 137 mmol/L (136-145); Total Protein,Serum 6.7 g/dl (6.3-8.2); Triglycerides 190 mg/dl (30-150); VLDL Cholesterol 38 mg/dL (0-40)
[2021-11-07 12:46] LABS: Direct LDL Cholesterol 128.85 mg/dL (100-129)
--- NOTE | 2021-11-07 12:46 | MM_ITS ---
PROCEDURE INFORMATION: Exam: MG Bilateral Screening 3D Mammography Exam date and time: 11/07/2021 12:46 PM Age: 40 years old Clinical indication: Encounter for screening mammogram for malignant neoplasm of breast TECHNIQUE: Imaging protocol: Bilateral screening tomosynthesis and 2D mammography including computer-aided detection (CAD) when performed. COMPARISON: MG SCBI MM Dig screening mamm BI w/CAD 12/26/2018 11:09 AM FINDINGS: MAMMOGRAPHY: Breast composition: The breast tissue is composed of scattered areas of fibroglandular density. Mass: None. Architectural distortion: None. Calcifications: No suspicious calcifications. Asymmetric density: None. Skin thickening: None. Axillary adenopathy: None. IMPRESSION: No mammographic evidence of malignancy. Annual screening is recommended unless otherwise clinically indicated. ASSESSMENT: BI-RADS Category 1: Negative
[2021-11-07 12:51] LABS: 25-OH Vitamin D, Total 27.3 ng/mL (30-100)
[2021-11-07 13:05] LABS: Thyroid Stimulating Hormone 1.09 uIU/mL (0.465-4.68)
[2021-11-07 13:25] LABS: Vitamin B12 435 pg/mL (239-931)
== END ==
PROVIDERS: Visit Provider Nurse Practitioner Family
DX: Z12.31 Encounter for screening mammogram for malignant neoplasm of breast (principal); R53.83 Other fatigue; E55.9 Vitamin D deficiency, unspecified
CPT/HCPCS: 36415; 77063; 77067; 80053; 80061; 82306; 82607; 84443; 85025

== ENCOUNTER → 2022-01-09 12:56 | Outpatient (CLI) | payer OTHER, SELFPAY | PROVIDERS: PCP Nurse Practitioner Family; Visit Provider Nurse Practitioner Family | DX: G47.30 Sleep apnea, unspecified (principal); R06.83 Snoring; R40.0 Somnolence | CPT/HCPCS: 95806 ==

== ENCOUNTER → 2022-09-20 12:55 | Outpatient (CLI) | payer OTHER, SELFPAY ==
--- NOTE | 2022-09-20 13:09 | XR_ITS ---
FINAL REPORT CLINICAL HISTORY: POSTERIOR L KNEE PAIN FINDINGS: Left knee Three views were obtained. There is no acute fracture or dislocation. The joint spaces appear normal. No joint effusion is identified. No soft tissue abnormality is identified. IMPRESSION: No acute process. Reviewed, Interpreted and Dictated by Javier Tai MD Transcribed by Nyla Romano Authenticated and [facility]
== END ==
PROVIDERS: PCP Nurse Practitioner Family; Visit Provider Nurse Practitioner Family
DX: M25.562 Pain in left knee (principal)
CPT/HCPCS: 73562

== ENCOUNTER → 2022-11-30 16:16 | Outpatient (CLI) | payer OTHER, SELFPAY ==
--- NOTE | 2022-11-30 16:16 | MM_ITS ---
PROCEDURE INFORMATION: Exam: MG Bilateral Screening 3D Mammography Exam date and time: 11/30/2022 4:12 PM Age: 42 years old Clinical indication: Screening examination TECHNIQUE: Imaging protocol: Bilateral Screening tomosynthesis and 2D mammography including computer-aided detection (CAD) when performed. COMPARISON: 1. MG MM DIG SCREENING MAMM BI W/CAD 11/07/2021 12:46 PM 2. MG SCBI MM Dig screening mamm BI w/CAD 12/26/2018 11:09 AM FINDINGS: MAMMOGRAPHY: Breast composition: There are scattered areas of fibroglandular density. Mass: None. Architectural distortion: None. Calcifications: No suspicious calcifications. Asymmetric density: None. Skin thickening: None. Axillary adenopathy: None. IMPRESSION: No mammographic evidence of malignancy. Annual screening is recommended unless otherwise clinically indicated. ASSESSMENT: BI-RADS Category 1: Negative
== END ==
PROVIDERS: PCP Nurse Practitioner Family; Visit Provider Nurse Practitioner Obstetrics & Gynecology
DX: Z12.31 Encounter for screening mammogram for malignant neoplasm of breast (principal)
CPT/HCPCS: 77063; 77067

== ENCOUNTER → 2022-12-11 15:20 | Outpatient (CLI) | payer OTHER, SELFPAY ==
--- NOTE | 2022-12-11 15:28 | XR_ITS ---
FINAL REPORT CLINICAL HISTORY: UNEXPLAINED COUGH COMPARISON: 09/24/2021 FINDINGS: Two views of the chest were obtained. The heart size and pulmonary vascularity are within normal limits. The mediastinum is normal. No acute pulmonary abnormality is identified. There is no pneumothorax. The bony thorax is intact. IMPRESSION: No active cardiopulmonary disease. Reviewed, Interpreted and Dictated by Shiva Liu III, MD Transcribed by Criselda Perry Authenticated and [facility]
[2022-12-17 16:41] LABS: D001-IgE D pteronyssinus <0.10 kU/L (Class 0); D002-IgE D farinae <0.10 kU/L (Class 0); E001-IgE Cat Dander <0.10 kU/L (Class 0); E005-IgE Dog Dander <0.10 kU/L (Class 0); E072-IgE Mouse Urine <0.10 kU/L (Class 0); G002-IgE Bermuda Grass <0.10 kU/L (Class 0); G006-IgE Timothy Grass <0.10 kU/L (Class 0); I006-IgE Cockroach, German <0.10 kU/L (Class 0); Immunoglobulin E, Total 28 IU/mL (6-495); M001-IgE Penicillium chrysogen <0.10 kU/L (Class 0); M002-IgE Cladosporium herbarum <0.10 kU/L (Class 0); M003-IgE Aspergillus fumigatus <0.10 kU/L (Class 0); M006-IgE Alternaria alternata <0.10 kU/L (Class 0); T001-IgE Maple/Box Elder <0.10 kU/L (Class 0); T003-IgE Common Silver Birch <0.10 kU/L (Class 0); T006-IgE Cedar, Mountain <0.10 kU/L (Class 0); T007-IgE Oak, White <0.10 kU/L (Class 0); T008-IgE Elm, American <0.10 kU/L (Class 0); T010-IgE Walnut <0.10 kU/L (Class 0); T011-IgE Maple Leaf Sycamore <0.10 kU/L (Class 0); T014-IgE Cottonwood <0.10 kU/L (Class 0); T015-IgE Ash, White <0.10 kU/L (Class 0); T022-IgE Pecan, Hickory <0.10 kU/L (Class 0); T070-IgE White Mulberry <0.10 kU/L (Class 0); W001-IgE Ragweed, Short <0.10 kU/L (Class 0); W011-IgE Thistle, Russian <0.10 kU/L (Class 0); W014-IgE Pigweed, Common <0.10 kU/L (Class 0); W018-IgE Sheep Sorrel <0.10 kU/L (Class 0)
== END ==
LOC: LAB 15:21 → RAD 15:21
PROVIDERS: Allergy & Immunology; PCP Internal Medicine Adolescent Medicine
DX: R06.00 Dyspnea, unspecified (principal); J30.89 Other allergic rhinitis
CPT/HCPCS: 36415; 71046; 82785; 86003

== ENCOUNTER → 2023-06-11 14:30 | Outpatient (CLI) | payer OTHER, SELFPAY ==
--- NOTE | 2023-06-11 14:30 | US_ITS ---
PROCEDURE: US TRANSVAGINAL CLINICAL INDICATION: heavy uterine bleeding/ possible polyp COMPARISON: US US TRANSVAGINAL from 07/25/2020 FINDINGS: Transvaginal and transabdominal sonographic images of the pelvis were obtained. UTERUS: 10.3 cm x 6.6 cmx 5.7 cm with a combined endometrial thickness of 22.9mm. There is a 2.1 cm x 1.4 cm x 2.1 cm polyp in the endometrial cavity. There are several nabothian cysts in the cervix. The largest measures 9 mm. LEFT OVARY: 2.0 cmx2.3 cmx1.4cm with a volume of 3.5ml. There are several small follicles. The left ovary was not seen transvaginally and was measured transabdominally. RIGHT OVARY: 2.5 cmx 2.4 cmx1.9 cm with a volume of 5.8ml. There is a dominant follicle measuring 1.9 cm x 1.9 cm x 1.7 cm Both ovaries are seen and appear normal. Doppler flow to both ovaries are seen. There is no fluid in the cul-de-sac. IMPRESSION: 1. Bulky anteverted uterus. 2. There is a 2.1 cm polyp in the endometrial cavity. 3. A polyp was previously visualized on ultrasound in 2019 and it has grown from 8 mm in size since then. 4. Both ovaries are seen and appear normal. There is a 1.9 cm dominant follicle in the right ovary. 5. No fluid in the cul-de-sac. Dictated by: Damion Purvis MD 06/12/2023 11:39 Damion Purvis MD in OV 06/12/2023 11:39
== END ==
PROVIDERS: PCP Internal Medicine Adolescent Medicine; Visit Provider Nurse Practitioner Obstetrics & Gynecology
DX: N93.9 Abnormal uterine and vaginal bleeding, unspecified (principal); N84.0 Polyp of corpus uteri
CPT/HCPCS: 76830

== ENCOUNTER → 2023-07-16 13:04 | Outpatient (CLI) | payer OTHER, SELFPAY ==
[2023-07-16 13:35] LABS: Basophils % 0.5 % (0.1-2.0); Eosinophils % 0.7 % (0.1-12.0); Hematocrit 41.8 % (37.0-47.0); Lymphocytes # 1.7 K/mm3 (0.7-4.5); Lymphocytes % 27.4 % (10-50); Mean Corpuscular HGB Conc 33.5 g/dL (31.8-35.4); Mean Corpuscular Hemoglobin 29.5 pg (27.0-31.2); Mean Platelet Volume 7.6 fl (7.4-10.4); Monocytes # 0.3 K/mm3 (0.1-1.0); Monocytes % 5.4 % (1.7-9.3); Neutrophils # 4.1 K/mm3 (1.8-7.8); Neutrophils % 66.1 % (37.0-80.0); Platelet Count 264 K/mm3 (142-424); Red Blood Count 4.75 M/mm3 (4.20-5.40); White Blood Count 6.2 K/mm3 (4.8-10.8)
[2023-07-16 13:45] LABS: Chloride 107 mmol/L (98-107); Potassium 4.4 mmoL/L (3.5-5.1); Sodium 141 mmol/L (136-145)
[2023-07-16 13:47] LABS: Alanine Aminotransferase 21 U/L (12-78); Aspartate Amino Transferase 26 U/L (14-36); Blood Urea Nitrogen 11 mg/dl (7-17); Estimated Glomerular Filt Rate 109 ml/min (>60); GFR (African American) 132 ML/MIN (>60)
[2023-07-16 13:48] LABS: Albumin Level 4.1 g/dl (3.5-5.0); Albumin/Globulin Ratio 1.6 (1.1-1.8); Alkaline Phosphatase 90 U/L (38-126); Anion Gap 13.4 mEq/L (5-15); Bilirubin,Total 0.6 mg/dl (0.2-1.3); Calcium 9.4 mg/dl (8.4-10.2); Carbon Dioxide 25 mmol/L (22.0-30.0); Globulin 2.6 g/dL (1.3-3.2); Glucose 93 mg/dl (74-100); Total Protein,Serum 6.7 g/dl (6.3-8.2)
[2023-07-16 14:07] LABS: HCG,Quantitative < 2 mIU/ml (0-5.42)
== END ==
LOC: LAB 13:05
PROVIDERS: PCP Internal Medicine Adolescent Medicine; Visit Provider Nurse Practitioner Obstetrics & Gynecology
DX: Z01.812 Encounter for preprocedural laboratory examination (principal); N92.0 Excessive and frequent menstruation with regular cycle
CPT/HCPCS: 36415; 80053; 84702; 85025

== ENCOUNTER 2023-07-18 06:08 | Day surgery (SDC) | payer OTHER, SELFPAY ==
[2023-07-12 13:00] VITALS: BMI 37.0
[2023-07-18] VITALS (10 sets, daily range): BP systolic 109–142; BP diastolic 67–94; PULSE 88–102; RESP 15–18; TEMP 36.2–36.9; O2SAT 92–100
--- NOTE | 2023-07-18 07:18 | EXP.ANES.CKL ---
[facility] Disclaimer: The information contained in this section may have been updated after the patient was seen, as this information can be updated by other users. Medical History Abnormal uterine bleeding due to endometrial polyp Anxiety Asthma delivery delivered Endometrial polyp History of anemia History of COVID-19 History of gastroesophageal reflux (GERD) Surgical History History of delivery Family History Other No significant family history Social History (Updated 07/18/23 @ 06:34 by Meche Bergman RN) Smoking Status: Never smoker alcohol intake: never substance use type: denies use current occupational status: unemployed Travel in the last 8 weeks: None household members: spouse and children [facility] Anesthesia Checklist Patient Identification Patient Identification: Arm Band and Family Structural Data Admitted From: Home Planned Operative Procedure/s: D and C. Hysteroscopy. Myosure. Consent for Planned Operative Procedure(s) Verified: Yes NPO Status Verified Time NPO: 00:00 Additional verifications Patient : No Anesthesia Reactions: No Hx Blood Transfusions: No Blood Transfusion Reaction: No Cephalosporin Allergy: No Previous Colonoscopy: No Airway Assessment Mallampati Score:: Class II C-Spine Mobility Assessed: Yes TMJ Mobility Assessed: Yes Dentition: Good Dentition Neurological Assessment Level of Consciousness: Awake, Alert, Appropriate and Follows Commands Hx Seizures: No Numbness or tingling in extremities: No Anesthesia Plan Anesthesia Risk discussed: Yes ASA Class: I Anesthesia Type: General Preoperative Comments Pre-Operative Comments: Hystory of blood clot of unknown etiology over tp years ago. PONV.
--- NOTE | 2023-07-18 08:01 | P.PNANES_ITS ---
[facility] Anesthesia Record Part I Anesthesia Record I Intake, IV Amount: 600 Hydration: Adequate Estimated blood loss (mL): 100 Urine output (mL): 100 Blood Pressure: 109/67 SaO2: 92 Pulse Rate: 88 Airway Patency: Patent Respiratory Rate: 16 Temperature: 98.4 F Patient is:: Drowsy and Oral/Nasal airway Stable to PACU at:: 08:00
--- NOTE | 2023-07-18 08:24 | EXP.OP.NOTE ---
Date of procedure: 07/18/23 Pre-op Diagnosis:: Menorrhagia, dysfunctional uterine bleeding, endometrial polyp Post-op Diagnosis:: Menorrhagia, dysfunctional uterine bleeding, endometrial polyp Procedure performed:: Hysteroscopy, dilation and curettage, MyoSure me Surgeon:: Damion Purvis MD CELL TOWER CLIMBER:: Lissette Arredondo Anesthesia: LMA Estimated blood loss (mL): 100 Clinical Note:: She is a 42-year-old lady who complains of irregular periods as well as heavy periods. An ultrasound showed that she had a 2 cm polyp within the endometrial cavity. As result of that she was offered hysteroscopy, D&C and MyoSure polypectomy. The risks and benefits of surgery were discussed with patient prior to surgery. Operative findings:: She had an anteverted bulky uterus. Within the uterine cavity there was a 2 cm sessile polyp. The endometrium itself appeared lush as well. Operative note:: She was taken the operating room where LMA anesthesia was found to be adequate. She was prepped and draped in normal sterile fashion lithotomy position. Weighted speculum placed in vagina and the anterior lip of the cervix was grasped with a tenaculum. I used Fernandes dilators to dilate the cervix to approximately 6 mm. I then inserted a MyoSure hysteroscope within the uterine cavity. The findings were as previously dictated. Then using the MyoSure resection device I was able to remove her polyp. This was followed by gentle curettage. She tolerated procedure well and was taken the recovery room in excellent condition. All sponge, instrument and needle counts were correct. The estimated blood loss was less than 100 cc. Condition: stable Disposition: PACU Specimens:: Endometrial polyp, endometrial curettings Complications:: None
--- NOTE | 2023-07-19 07:43 | EXP.ANES.II ---
[facility] Anesthesia Record Part II Anesthesia Record Part II Discharge Time: 08:40 Destination: Surgical Day Care (OP Surgery) PACU nurse assessment reviewed?: Yes Patient Condition:: Good Anesthesia Complications:: None Swallowing reflex intact?: Yes Airway Patency: Patent Cyanosis?: No Blood Pressure: 116/93 SaO2: 98 Respiratory Rate: 16 Pulse Rate: 97 Temperature: 97.2 F Mental Status: Alert & Oriented Pain level:: 0 Nausea and/or vomitting:: None Intake, IV Amount: 0 Hydration: Adequate
[2023-07-19 07:44] VITALS: BP 116/93; PULSE 97; RESP 16; TEMP 36.2; O2SAT 98
== END 2023-07-18 09:20 | disposition home or self-care (01) ==
PROVIDERS: PCP Internal Medicine Adolescent Medicine; Visit Provider Nurse Practitioner Obstetrics & Gynecology
PROC: (CPT 58558; principal; 2023-07-18 07:30)
DX: N84.0 Polyp of corpus uteri (principal); N92.0 Excessive and frequent menstruation with regular cycle; N93.9 Abnormal uterine and vaginal bleeding, unspecified; N85.4 Malposition of uterus
CPT/HCPCS: 58558; 96374; J2405

== ENCOUNTER 2023-12-23 10:37 | Outpatient (CLI) | payer OTHER, SELFPAY ==
[2023-12-23 12:05] LABS: Alanine Aminotransferase 21 U/L (12-78); Albumin Level 4.3 g/dl (3.5-5.0); Albumin/Globulin Ratio 1.7 (1.1-1.8); Alkaline Phosphatase 98 U/L (38-126); Aspartate Amino Transferase 27 U/L (14-36); Bilirubin,Total 0.9 mg/dl (0.2-1.3); Blood Urea Nitrogen 10 mg/dl (7-17); Calcium 9.2 mg/dl (8.4-10.2); Carbon Dioxide 27 mmol/L (22.0-30.0); Chloride 104 mmol/L (98-107); Chol/HDL Ratio 5.9 (1-3.5); Cholesterol 202 mg/dl (140-200); Estimated Glomerular Filt Rate 91 ml/min (>60); GFR (African American) 110 ML/MIN (>60); Globulin 2.6 g/dL (1.3-3.2); Glucose 100 mg/dl (74-100); HDL Cholesterol 34 mg/dl (40-60); Sodium 138 mmol/L (136-145); Total Protein,Serum 6.9 g/dl (6.3-8.2); Triglycerides 136 mg/dl (30-150); VLDL Cholesterol 27 mg/dL (0-40)
[2023-12-23 12:19] LABS: C-Reactive Protein 5.2 mg/L (0-4)
[2023-12-23 12:20] LABS: 25-OH Vitamin D, Total 43.4 ng/mL (30-100)
[2023-12-23 12:28] LABS: Direct LDL Cholesterol 126.45 mg/dL (100-129)
[2023-12-23 12:36] LABS: Thyroid Stimulating Hormone 1.93 uIU/mL (0.465-4.68)
[2023-12-23 12:55] LABS: Vitamin B12 521 pg/mL (239-931)
[2023-12-23 20:09] LABS: Ferritin 43.5 ng/ml (6.24-137)
[2023-12-24 08:18] LABS: Progesterone 9.8 ng/mL (.); Triiodothyronine (T3) Free 3.9 pg/mL (2.0-4.4)
[2023-12-24 15:11] LABS: Anti-Centromere B Antibodies <0.2 AI (0.0-0.9); Anti-DNA (DS) Ab Qn 11 IU/mL (0-9); Anti-Jo-1 <0.2 AI (0.0-0.9); Antichromatin Antibodies <0.2 AI (0.0-0.9); Antiscleroderma-70 Antibodies <0.2 AI (0.0-0.9); RNP Antibodies <0.2 AI (0.0-0.9); Sjogren's Anti-SS-A <0.2 AI (0.0-0.9); Sjogren's Anti-SS-B <0.2 AI (0.0-0.9)
[2024-01-01 09:07] LABS: Free Testosterone (Direct) 2.4 pg/mL (0.0-4.2); Testosterone, Total, LC/MS 27.5 ng/dL (.)
[2024-01-05 09:27] LABS: Anti-Centromere B Abs Charge YES; Anti-DNA (DS) Ab Charge YES; Anti-Jo-1 Charge YES; Antichromatin Abs Charge YES; Antinuclear Antibodies (ANA) Positive; Antiscleroderma-70 Abs Charge YES; RNP Antibodies Charge YES; Sjogren's Anti-SS-A Ab Charge YES; Sjogren's Anti-SS-B Ab Charge YES; Smith Antibodies Charge YES
== END 2023-12-23 23:59 | disposition home or self-care (01) ==
LOC: LAB.DROPOF 10:38
PROVIDERS: PCP Nurse Practitioner Family; Visit Provider Nurse Practitioner Family
DX: R23.2 Flushing (principal); L65.9 Nonscarring hair loss, unspecified; M25.50 Pain in unspecified joint; R63.5 Abnormal weight gain; Z68.41 Body mass index [BMI] 40.0-44.9, adult; Z86.2 Personal history of diseases of the blood and blood-forming organs and certain disorders involving the immune mechanism; Z79.899 Other long term (current) drug therapy
CPT/HCPCS: 36415; 80053; 80061; 82306; 82533; 82607; 82670; 82728; 83525; 84144; 84443; 84481; 86038; 86140; 86225; 86235

== ENCOUNTER 2024-01-24 10:02 | Outpatient (CLI) | payer OTHER, SELFPAY ==
[2024-01-24 10:33] LABS: Basophils % 0.7 % (0.1-2.0); Eosinophils # 0.1 K/mm3 (0.0-0.4); Eosinophils % 0.9 % (0.1-12.0); Lymphocytes # 1.7 K/mm3 (0.7-4.5); Mean Corpuscular HGB Conc 33.2 g/dL (31.8-35.4); Mean Corpuscular Hemoglobin 29.8 pg (27.0-31.2); Mean Corpuscular Volume 89.6 fl (81-99); Mean Platelet Volume 7.6 fl (7.4-10.4); Monocytes # 0.4 K/mm3 (0.1-1.0); Monocytes % 5.2 % (1.7-9.3); Neutrophils # 4.6 K/mm3 (1.8-7.8); Neutrophils % 68.2 % (37.0-80.0); Platelet Count 268 K/mm3 (142-424); Red Blood Count 4.69 M/mm3 (4.20-5.40); Red Cell Distribution Width 14.1 % (11.5-17.5); White Blood Count 6.7 K/mm3 (4.8-10.8)
[2024-01-24 11:08] LABS: Alanine Aminotransferase 22 U/L (12-78); Albumin Level 4.3 g/dl (3.5-5.0); Albumin/Globulin Ratio 1.9 (1.1-1.8); Alkaline Phosphatase 92 U/L (38-126); Aspartate Amino Transferase 25 U/L (14-36); Bilirubin,Total 0.5 mg/dl (0.2-1.3); Blood Urea Nitrogen 10 mg/dl (7-17); Carbon Dioxide 25 mmol/L (22.0-30.0); Chloride 106 mmol/L (98-107); Creatine Kinase 144 U/L (30-135); Erythrocyte Sedimentation Rate 6 mm/hr (0-20); Estimated Glomerular Filt Rate 109 ml/min (>60); GFR (African American) 131 ML/MIN (>60); Globulin 2.3 g/dL (1.3-3.2); Glucose 103 mg/dl (74-100); Sodium 139 mmol/L (136-145); Total Protein,Serum 6.6 g/dl (6.3-8.2); Uric Acid 4.8 mg/dl (2.5-6.2)
[2024-01-24 11:14] LABS: C-Reactive Protein 2.7 mg/L (0-4)
[2024-01-24 11:25] LABS: 25-OH Vitamin D, Total 48.5 ng/mL (30-100)
[2024-01-25 10:10] LABS: Complement C3 129 mg/dL (82-167)
[2024-01-25 11:11] LABS: Lyme Ab CIA Negative (Negative)
[2024-01-25 12:53] LABS: HBsAg Screen Negative (Negative); HCV Ab Non Reactive (Non Reactive); Hep A Ab, IGM Negative (Negative); Hep B Core Ab, IgM Negative (Negative)
[2024-01-25 13:38] LABS: Anti-Cyclic Citrullinated Pept 2 units (0-19)
[2024-01-25 14:39] LABS: Anti-Cardio Antibody IgM <9 MPL U/mL (0-12); Anti-Cardiolipin Antibody IgG <9 GPL U/mL (0-14); Anticardiolipin Ab,IgA,Qn <9 APL U/mL (0-11)
[2024-01-26 17:15] LABS: Lupus Reflex Interpretation Comment: (.); PTT-LA 39.6 sec (0.0-43.5)
[2024-01-27 12:20] LABS: Anti-Centromere B Antibodies <0.2 AI (0.0-0.9); Anti-DNA (DS) Ab Qn 9 IU/mL (0-9); Anti-Jo-1 <0.2 AI (0.0-0.9); Anti-Smith Antibody <0.2 AI (0.0-0.9); Antichromatin Antibodies <0.2 AI (0.0-0.9); Antinuclear Antibodies, IFA Negative (.); Antiscleroderma-70 Antibodies <0.2 AI (0.0-0.9); RNP Antibodies <0.2 AI (0.0-0.9); Sjogren's Anti-SS-A <0.2 AI (0.0-0.9); Sjogren's Anti-SS-B <0.2 AI (0.0-0.9)
[2024-01-28 17:36] LABS: QuantiFERON-TB Gold Plus Negative (Negative)
[2024-01-30 21:59] LABS: 14.3.3 eta, RA 0.29 ng/mL (.)
[2024-01-31 18:10] LABS: HLA-B27 Negative (.)
[2024-02-01 06:08] LABS: RF, IgA by EIA (RDL) < 7 U (<7); RF, IgG by EIA (RDL) < 7 U (<7); RF, IgM by EIA (RDL) < 7 U (<7)
== END 2024-01-24 23:59 ==
LOC: LAB 10:03
PROVIDERS: PCP Nurse Practitioner Family; Visit Provider Internal Medicine
DX: M25.50 Pain in unspecified joint (principal); R53.83 Other fatigue; R79.82 Elevated C-reactive protein (CRP); R89.9 Unspecified abnormal finding in specimens from other organs, systems and tissues; E66.01 Morbid (severe) obesity due to excess calories; Z68.41 Body mass index [BMI] 40.0-44.9, adult
CPT/HCPCS: 36415; 80053; 80074; 82085; 82306; 82550; 83520; 84550; 85025; 85613; 85651; 86038; 86140; 86147; 86161; 86200; 86225; 86235; 86431; 86480; 86618; 86812

== ENCOUNTER 2024-07-23 12:20 | Emergency (ER) | payer BC, SELFPAY ==
[2024-07-23 12:43] VITALS: BP 141/80; PULSE 102; RESP 18; TEMP 36.8; O2SAT 97; BMI 40.8
--- NOTE | 2024-07-23 12:43 | XR_ITS ---
FINAL REPORT CLINICAL HISTORY: rolled FINDINGS: Left ankle Three views were obtained. There is no acute fracture or dislocation. The joint spaces appear normal. There is lateral soft tissue swelling. IMPRESSION: No acute process. Reviewed, Interpreted and Dictated by Shiva Liu III, MD Transcribed by Nyla Romano Authenticated and [facility]
--- NOTE | 2024-07-23 13:02 | ED_ITS ---
Discharge Plan Disposition Patient Disposition: Home, Self-Care Condition: Good Prescriptions Prescriptions: No Action escitalopram oxalate 5 mg tablet 5 mg PO DAILY Qty: 30 2RF omeprazole 40 mg capsule,delayed release(DR/EC) 40 mg PO DAILY epinephrine [EpiPen 2-Flo] 0.3 mg/0.3 mL auto-injector 0.3 mg IM Q5-15M PRN (Reason: hypersensitivity reaction) Qty: 2 0RF Rx Instructions: do not exceed 3 doses per episode Referrals Follow up/Referrals: Katie Serrano APRN [Primary Care Provider] - See instructions Sweetie Weldon DPM [Staff Physician] - See instructions Activity Restrictions/Add. Instructions Additional Instructions/Restrictions: Rest the extremity, apply ice for 15 minutes as tolerated three or four times per day, Wear the hernan wrap for compression, Elevate the extremity as tolerated while you are resting. Take ibuprofen for pain. Follow up with Dr. Weldon (podiatry). I put in a referral but you need to call her office and schedule an appointment. Follow up with your regular doctor. GO TO THE ER FOR ANY WORSENING SYMPTOMS Clinical Impressions Clinical Impression: Sprain of ankle, left, Left ankle pain Stand Alone Forms Stand Alone Forms: Work/School Release Instructions Patient Instructions: DI for Ankle Sprain, How to Apply an Elastic Wrap on Ankle Print Language Print Language: Georgian Discharge ED Provider: Jose Roberto Rehman [facility] General Stated complaint: L Ankl pain ao Mode of Arrival: Ambulatory Source of Information: Patient Limitations: No Limitations Time Seen by Provider: 07/23/24 12:57 Description of Symptoms (Recalled from Triage Doc. by RN): Reports missing the step on her SUV and twisting her left ankle. HEENT Symptoms (Recalled from RN notes): No Resp Symptoms (Recalled from RN notes): No Skin Symptoms (Recalled from RN notes): No MS Symptoms (Recalled from RN notes): Yes Functional Status (Recalled from RN notes): wnl History of Present Illness Provider Complaint: She states that she stepped down out of her truck today and twisted her left ankle and foot. She is having left ankle pain and swelling. She denies any other injury or complaint. Related Data Home Medications ?Medication ?Instructions ?Recorded ?Confirmed omeprazole 40 mg capsule,delayed 40 mg PO DAILY reflux 02/05/23 07/23/24 release Previous Rx's ?Medication ?Instructions ?Recorded epinephrine 0.3 mg/0.3 mL 0.3 mg (0.3 mL) IM Q5-15M PRN 05/10/23 injection, auto-injector (EpiPen hypersensitivity reaction #2 ea 2-Flo) escitalopram oxalate 5 mg tablet 5 mg PO DAILY #30 tabs 01/31/24 Allergies Allergy/AdvReac Type Severity Reaction Status Date / Time bee venom protein (honey bee) Allergy Rash Verified 07/23/24 09:06 Worker's Comp Is this a Worker's Comp case?: No [facility] Disclaimer: The information contained in this section may have been updated after the patient was seen, as this information can be updated by other users. Medical History Anxiety History of COVID-19 Asthma History of gastroesophageal reflux (GERD) History of anemia Endometrial polyp Abnormal uterine bleeding due to endometrial polyp delivery delivered Surgical History H/O dilation and curettage History of hysteroscopy History of delivery Family History Other No significant family history Social History Smoking Status: Never smoker alcohol intake: never substance use type: denies use current occupational status: unemployed Travel in the last 8 weeks: None household members: spouse and children ROS Obtained: Yes All systems reviewed & no additional complaints except as documented Constitutional Constitutional: Denies chills and Denies fever(s) Eyes Eyes: Denies eye discharge ENT Ears, Nose, Mouth, and Throat: Denies dizziness, Denies otalgia and Denies sore throat Cardiovascular Cardiovascular: Denies chest pain Respiratory Respiratory: Denies shortness of breath, Denies chest congestion, Denies cough, Denies stridor and Denies wheezing Gastrointestinal Gastrointestingal: Denies nausea or vomiting Musculoskeletal Musculoskeletal: Reports as per HPI Integumentary/Breasts Skin/Breast: Denies redness, Denies rash and Denies wounds Neurologic Neurologic: Denies dizziness and Denies paresthesias Allergic/Immunologic Allergic/Immunologic: Denies wheezing Physical Exam General General appearance: alert and in no apparent distress Head Head exam: atraumatic, normocephalic and normal inspection Eye Eye exam: Present normal appearance, PERRL and EOMI ENT ENT exam: Present normal exam, normal oropharynx, mucous membranes moist, TM's normal bilaterally and normal external ear exam Neck Neck exam: Present normal inspection, full ROM and trachea midline; Absent meningismus or lymphadenopathy Chest Chest inspection: Present normal inspection and symmetric chest wall rise; Absent tenderness Respiratory Respiratory exam: Present normal lung sounds bilaterally; Absent respiratory distress Cardiovascular Cardiovascular exam: Present regular rate and normal rhythm; Absent JVD Abdominal Exam Abdominal exam: Present soft and normal bowel sounds; Absent distention, tenderness or guarding Extremities Exam Extremities exam: Present normal capillary refill; Absent calf tenderness Expanded Lower Extremity Exam Right: Hip/Pelvis exam: Present normal inspection and full ROM; Absent tenderness Knee exam: Present normal inspection, full ROM and knee extension intact; Absent tenderness, pain with valgus, laxity with valgus, pain with varus or laxity with varus Lower leg exam: Present normal inspection, full ROM and Achilles tendon intact; Absent tenderness or Homans' sign Foot/toe exam: Present normal inspection and full ROM; Absent tenderness, swelling, abrasion, laceration, ecchymosis, deformity, crepitus, dislocation, erythema, amputation, puncture wound, foreign body, calcaneal tenderness, tenderness at base of 5th metatarsal, nail avulsion or subungual hematoma Neurovascular/Tendon exam: Present normal capillary refill, normal 2-point discrimination and normal fine/light touch; Absent pulse deficit, motor deficit, sensory deficit, tendon deficit, extremity cold to touch or pallor Gait: observed and limited by pain Back Exam Back exam: Present normal inspection; Absent tenderness Neurological Exam Neurological exam: Present alert and oriented X3 Psychiatric Psychiatric exam: Present normal affect and normal mood Skin Skin exam: Present warm, dry, intact and normal color Lymphatic Lymphatic Findings: no adenopathy Medical Decision Making Medical Records Medical records reviewed: No I reviewed the patient's medical records. Beny Inquiry Pt receiving controlled substance: No Vital Signs: 07/23/24 12:43 Temperature 98.2 F Temperature Source Oral Pulse Rate [Radial] 102 H Respiratory Rate 18 Blood Pressure [Right Arm] 141/80 H Blood Pressure Mean [Right Arm] 100 Blood Pressure Source [Right Arm] Automatic Cuff Blood Pressure Position [Right Arm] Sitting 02 Sat by Pulse Oximetry 97 Oxygen Delivery Method Room Air Orders (Tests/Meds): ORDERS Category Date Time Status Ankle XR - Left minimum 3 Views [XR ankle LT min 3V] Exams 07/23/24 12:43 Ordered Stat Radiology Data #1: Image(s): Ankle Image Reviewed: Yes I reviewed the patient's radiology image and Yes I have reviewed radiologist's interpretation Preliminary Findings: No Fracture Seen Procedures Risk/Benefits of Procedure(s) Were Explained: Yes Orthopedic Splinting/Casting Injury #1: Side: left Lower Extremity Injury Location: ankle and foot Lower Extremity Immobilizer: Hernan wrap and applied by nurse/dr bermudez Additional Comments: she has her own crutches Post Cast/Splinting Neuro Status: intact Post Cast/Splinting Vasc Status: intact
[2024-07-23 14:09] VITALS: BP 141/80; PULSE 100; RESP 18; TEMP 36.8; O2SAT 97
== END 2024-07-23 14:10 | disposition home or self-care (01) ==
PROVIDERS: Emergency Provider Nurse Practitioner Family; PCP Nurse Practitioner Family
DX: S93.402A Sprain of unspecified ligament of left ankle, initial encounter (principal); M25.572 Pain in left ankle and joints of left foot; V48.4XXA Person boarding or alighting a car injured in noncollision transport accident, initial encounter
CPT/HCPCS: 73610; 99204; 99212; G0463

== ENCOUNTER 2024-08-28 11:01 | Outpatient (CLI) | payer BC, SELFPAY | END 2024-08-28 23:59 | disposition home or self-care (01) | LOC: LAB.DROPOF 08-31 11:01 | PROVIDERS: PCP Student in an Organized Health Care Education/Training Program; Visit Provider Student in an Organized Health Care Education/Training Program | DX: Z20.818 Contact with and (suspected) exposure to other bacterial communicable diseases (principal) | CPT/HCPCS: 87070 ==

== ENCOUNTER 2025-01-05 16:19 | Outpatient (CLI) | payer BC, SELFPAY ==
[2025-01-05 16:38] LABS: Anti-Centromere B Antibodies ND; Anti-DNA (DS) Ab Qn ND; Anti-Jo-1 ND; Antichromatin Antibodies ND; Antiscleroderma-70 Antibodies ND; RNP Antibodies ND; Sjogren's Anti-SS-A ND; Sjogren's Anti-SS-B ND
[2025-01-05 17:21] LABS: Basophils % 0.4 % (0.1-2.0); Hemoglobin 13.5 g/dL (12.2-16.2); Mean Corpuscular HGB Conc 32.9 g/dL (31.8-35.4); Mean Corpuscular Hemoglobin 28.4 pg (27.0-31.2); Mean Corpuscular Volume 86.3 fl (81-99); Mean Platelet Volume 8.9 fl (7.4-10.4); Monocytes # 0.5 K/mm3 (0.1-1.0); Monocytes % 17.5 % (1.7-9.3); Neutrophils # 1.3 K/mm3 (1.8-7.8); Neutrophils % 46.7 % (37.0-80.0); Platelet Count 196 K/mm3 (142-424); Red Blood Count 4.75 M/mm3 (4.20-5.40); Red Cell Distribution Width 13.4 % (11.5-17.5); White Blood Count 2.8 K/mm3 (4.8-10.8)
[2025-01-05 17:54] LABS: Alanine Aminotransferase 22 U/L (12-78); Albumin Level 4.4 g/dl (3.5-5.0); Alkaline Phosphatase 73 U/L (38-126); Anion Gap 9.2 mEq/L (5-15); Aspartate Amino Transferase 28 U/L (14-36); Bilirubin,Total 0.3 mg/dl (0.2-1.3); Blood Urea Nitrogen 10 mg/dl (7-17); Calcium 9.3 mg/dl (8.4-10.2); Carbon Dioxide 30 mmol/L (22.0-30.0); Chloride 101 mmol/L (98-107); Estimated Glomerular Filt Rate 108 ml/min (>60); GFR (African American) 131 ML/MIN (>60); Globulin 2.2 g/dL (1.3-3.2); Glucose 85 mg/dl (74-100); Magnesium 1.8 mg/dl (1.6-2.3); Potassium 4.2 mmoL/L (3.5-5.1); Sodium 136 mmol/L (136-145); Total Protein,Serum 6.6 g/dl (6.3-8.2)
[2025-01-05 18:09] LABS: Hemoglobin A1C 5.6 % (4.0-6.0)
[2025-01-05 18:48] LABS: Thyroid Stimulating Hormone 1.21 uIU/mL (0.465-4.68)
[2025-01-05 19:31] LABS: Ferritin 83.3 ng/ml (6.24-137)
[2025-01-06 10:24] LABS: Thyroid Peroxidase Antibodies 13 IU/mL (0-34); Triiodothyronine (T3) Free 3.1 pg/mL (2.0-4.4)
[2025-01-06 14:05] LABS: Antinuclear Antibodies (ANA) Negative (Negative)
[2025-01-06 15:12] LABS: Thyroglobulin Level <1.0 IU/mL (0.0-0.9)
== END 2025-01-05 23:59 | disposition home or self-care (01) ==
LOC: RT 16:20
PROVIDERS: PCP Nurse Practitioner Family; Visit Provider Nurse Practitioner Family
DX: R00.2 Palpitations (principal); R63.5 Abnormal weight gain; R76.8 Other specified abnormal immunological findings in serum; Z68.41 Body mass index [BMI] 40.0-44.9, adult
CPT/HCPCS: 36415; 80053; 82728; 83036; 83735; 84443; 84481; 85025; 86038; 86225; 86235; 86376; 86800; 93225; 93227

== ENCOUNTER 2025-01-25 11:03 | Outpatient (CLI) | payer BC, SELFPAY ==
--- NOTE | 2025-01-25 11:17 | XR_ITS ---
FINAL REPORT CLINICAL HISTORY: Shortness of breath on exertion. COMPARISON: 12/11/2022 FINDINGS: 2 views of the chest were obtained. No acute pulmonary density is evident. There is no evidence of effusion or other pleural disease. The mediastinum has a normal appearance. The cardiac silhouette is unremarkable. IMPRESSION: Unremarkable chest exam. Reviewed, Interpreted and Dictated by Nabil Alexis MD Transcribed by Charity Borges Authenticated and [facility]
[2025-01-25 11:25] LABS: Basophils % 0.3 % (0.1-2.0); Eosinophils # 0.1 K/mm3 (0.0-0.4); Eosinophils % 0.8 % (0.1-12.0); Hematocrit 39.8 % (37.0-47.0); Hemoglobin 13.2 g/dL (12.2-16.2); Lymphocytes # 1.4 K/mm3 (0.7-4.5); Lymphocytes % 21.6 % (10-50); Mean Corpuscular HGB Conc 33.2 g/dL (31.8-35.4); Mean Corpuscular Hemoglobin 28.3 pg (27.0-31.2); Mean Corpuscular Volume 85.4 fl (81-99); Monocytes # 0.4 K/mm3 (0.1-1.0); Monocytes % 5.9 % (1.7-9.3); Neutrophils # 4.7 K/mm3 (1.8-7.8); Neutrophils % 71.1 % (37.0-80.0); Platelet Count 280 K/mm3 (142-424); Red Blood Count 4.66 M/mm3 (4.20-5.40); Red Cell Distribution Width 13.6 % (11.5-17.5); White Blood Count 6.6 K/mm3 (4.8-10.8)
[2025-01-26 13:46] LABS: EBV Ab VCA, IgG >600.0 U/mL (0.0-17.9); EBV Ab VCA, IgM <36.0 U/mL (0.0-35.9); EBV Nuclear Antigen Ab, IgG <18.0 U/mL (0.0-17.9)
[2025-01-26 17:19] LABS: Deamidated Gliadin Abs, IgA 2 units (0-19); Deamidated Gliadin Abs, IgG 1 units (0-19); Tissue Transglutaminase IgA Ab <2 U/mL (0-3); Tissue Transglutaminase IgG Ab 10 U/mL (0-5)
[2025-01-27 05:09] LABS: Endomysial IgA Antibody Negative (Negative)
[2025-01-27 09:24] LABS: Reticulin IgA Antibody Negative titer (Neg:<1:2.5)
[2025-01-27 11:07] LABS: Peripheral Smear Review Scanned Result
[2025-01-28 13:34] LABS: Vitamin C 0.9 mg/dL (0.4-2.0)
== END 2025-01-25 23:59 | disposition home or self-care (01) ==
LOC: LAB 11:03
PROVIDERS: PCP Nurse Practitioner Family; Visit Provider Nurse Practitioner Family
DX: D72.819 Decreased white blood cell count, unspecified (principal); R14.0 Abdominal distension (gaseous); R06.09 Other forms of dyspnea
CPT/HCPCS: 36415; 71046; 82180; 83516; 85025; 86255; 86256; 86664; 86665

== ENCOUNTER 2025-02-23 10:10 | Outpatient (CLI) | payer BC, SELFPAY ==
--- NOTE | 2025-02-23 | CA_ITS ---
APPROVED REPORT Exam: Exercise Treadmill Technologist: Radhika Jerry Ht: 5 ft 1 in Wt: 209 lbs BSA: 1.92 m2 HR: 66 bpm BP: 138/91 mmHg Rhythm: NSR Stress Test Details Test: Exercise stress testing was performed using a Lalo protocol. HR Resting HR: 66 bpm Max Heart Rate (APMHR): 175 bpm Max HR Achieved: 166 bpm Target HR (85% APMHR): 149 bpm % of APMHR: 95 Recovery HR: 108 bpm HR response to stress: Normal HR response to stress BP Resting BP: 138.0/91.0 mmHg Max BP: 183.0/89.0 mmHg Recovery BP: 147.0/81.0 mmHg BP response to stress: Normal blood pressure response to stress. ECG Resting ECG: Sinus rhythm Stress EC mm horizontal ST depression Arrhythmia: PACs Clinical Exercise duration: 7:11 min Exercise capacity: 9.2 METs Stress ECG Conclusion Symptoms: Chest pressure, leg fatigue Arrhythmias/Ectopy: PACs ST-T Changes: [address] depression Conclusion: Average exercise capacity. Equivocal ECG changes at peak stress. Myoview images are reported separately. Electronically signed by : Essence Angela MD 02/23/2025 15:10:40
--- NOTE | 2025-02-23 | CA_ITS ---
APPROVED REPORT EXAM: Comprehensive 2D, Doppler, and color-flow Echocardiogram Barber Tool Sharpener: Shawna Harvey RT(R) Ht: 5 ft 1 in Wt: 209lbs BSA: 1.92 BP: 126/68 mmHg Indications: SOB, CP, hx COVID, GERD, asthma, abn EKG, palpitations, fatigue. 2D Dimensions LA Volume 22.60 mL LA Volume Index 11.71 mL/m2 (M/F) 16-34 EF AP4 66.40 % GL Strain -16.0 % M-Mode Dimensions RVDd 2.57 cm (0.9-2.6) LA Diam 3.70 cm (1.9-4.0) LVDd 4.79 cm (3.5-5.7) LVDs 3.46 cm (3.5-5.7) IVSd 0.71 cm (0.6-1.1) PWd 0.71 cm (0.6-1.1) EF (Teich) 53.70% FS 27.80% EDV (Teich) 107.00 mL ESV (Teich) 49.50 mL LV Diastology E Decel Time 150 (160-240 msec) E/A Ratio 1.0 Mitral Valve MV E Max Shayan. 78.0 (40-130 cm/s) MV A Velocity 82.0 (40-130 cm/s) E/A Ratio 0.95 MV PHT 44.0 ms Left Ventricle The left ventricle is normal size. The left ventricular systolic function is normal. The left ventricular ejection fraction is within the normal range. There is normal left ventricular wall thickness. There is normal LV segmental wall motion. The left ventricular diastolic function is normal. LVEF is 55%. Right Ventricle The right ventricle is normal size. The right ventricular systolic function is normal. Atria The left atrium size is normal. The right atrium size is normal. There is no Doppler evidence of interatrial shunt. Aortic Valve Aortic valve opens well. Trace aortic regurgitation. There is no aortic valvular stenosis. Mitral Valve The mitral valve is normal in structure. No evidence of mitral valve stenosis. Trace mitral regurgitation. Tricuspid Valve Tricuspid valve is grossly normal in structure and function. Trace tricuspid regurgitation. There is insufficient TR jet to estimate RVSP. Pulmonic Valve The pulmonary valve is normal in structure. Trace pulmonic regurgitation. Great Vessels The aortic root is normal in size. IVC is normal in size and collapses >50% with inspiration. Pericardium There is no pericardial effusion. Other Information Study Quality: Fair Conclusion Normal biventricular systolic function. No significant valvular stenosis or regurgitation. Electronically signed by : Essence Angela MD 02/23/2025 14:41:33
== END 2025-02-23 23:59 | disposition home or self-care (01) ==
LOC: RT 10:10
PROVIDERS: PCP Nurse Practitioner Family; Visit Provider Nurse Practitioner Family
DX: R94.31 Abnormal electrocardiogram [ECG] [EKG] (principal); R07.89 Other chest pain; R06.09 Other forms of dyspnea
CPT/HCPCS: 93017; 93018; 93306

== ENCOUNTER 2025-03-12 12:55 | Outpatient (CLI) | payer BC, SELFPAY ==
--- NOTE | 2025-03-12 13:00 | US_ITS ---
PROCEDURE: US TRANSVAGINAL CLINICAL INDICATION: need for AUB COMPARISON: US US TRANSVAGINAL from 07/25/2020 US US TRANSVAGINAL from 06/11/2023 FINDINGS: Transvaginal sonographic images of the pelvis were obtained. UTERUS: 11.4cm x 6.0cm anteverted with a combined endometrial thickness of 12.5mm. There are multiple small nabothian cysts. The largest measures 1.2 cm. There continues to be a polyp within the endometrial cavity that measures 1.9 cm x 1.2 cm. There is blood flow seen within this polyp along with a small amount of fluid adjacent to the polyp within the endometrium. LEFT OVARY: 4.2cmx4.7 cmx3.7cm with a volume of 38.1ml. There is a follicle in the left ovary that measures 3.4 cm x 3.3 cm x 3.1 cm RIGHT OVARY: 2.1cmx 1.8 cmx1.4cm with a volume of 2.7ml. Both ovaries are seen and appear normal. Doppler flow to both ovaries are seen. There is no fluid in the cul-de-sac. IMPRESSION: 1. Anteverted, enlarged uterus. Within the endometrial cavity there continues to be a polyp that now measures up to 1.9 cm. There is blood flow within the polyp. This polyp was originally seen in 2019. 2. Both ovaries are seen and appear normal. The left ovary contains a 3.4 cm follicle. 3. No fluid in the cul-de-sac. Dictated by: Damion Purvis MD 03/13/2025 09:01 Damion Purvis MD in OV 03/13/2025 09:01
== END 2025-03-12 23:59 | disposition home or self-care (01) ==
LOC: RAD 12:55
PROVIDERS: PCP Nurse Practitioner Family; Visit Provider Nurse Practitioner Obstetrics & Gynecology
DX: N93.9 Abnormal uterine and vaginal bleeding, unspecified (principal)
CPT/HCPCS: 76830

== ENCOUNTER 2025-03-15 15:42 | Outpatient (CLI) | payer BC, SELFPAY ==
[2025-03-15 17:29] LABS: 25-OH Vitamin D, Total 28.2 ng/mL (30-100)
[2025-03-15 18:02] LABS: Vitamin B12 410 pg/mL (239-931)
== END 2025-03-15 23:59 | disposition home or self-care (01) ==
LOC: LAB 15:43
PROVIDERS: PCP Nurse Practitioner Family; Visit Provider Nurse Practitioner Family
DX: R14.0 Abdominal distension (gaseous) (principal); R53.83 Other fatigue
CPT/HCPCS: 82306; 82607

== ENCOUNTER 2025-03-17 08:57 | Outpatient (CLI) | payer BC, SELFPAY ==
[2025-03-17 09:11] VITALS: BMI 40.4
[2025-03-17] MEDS: METOPROLOL TARTRATE 50MG TABLET PO (09:33)
[2025-03-17] MEDS: IVABRADINE HCL 7.5MG TABLET PO (09:33)
[2025-03-17 09:34] LABS: Urine Pregnancy, HCG Qual. Negative (Negative)
[2025-03-17 09:36] VITALS: BP 152/90; PULSE 84; RESP 16; TEMP 36.1; O2SAT 94
--- NOTE | 2025-03-17 10:00 | CT_ITS ---
APPROVED REPORT Mat Inspector: CLINICAL INDICATION Chest Pain TECHNIQUE Image Acquisition: A 128 slice MDCT scanner (Scint-Xa View) was used for data acquisition. A noncontrast coronary calcium scan was performed. A CT attenuation threshold of 130 Hounsfield units (HU) was used for the detection of calcium in contiguous voxels of 1 sq mm in area to be counted as individual lesions. Bolus tracking in the ascending aorta with a threshold of 180 HU was performed. Immediately afterwards, ECG synchronized cardiac CT was then performed from the cardiac base to apex using retrospective gating with ECG tube current modulation. A total of 85 mL of Isovue 370 mg/mL contrast medium was administered at 5 mL/sec followed by a saline flush using a biphasic injection protocol. A tube voltage of 120 KVp was used. The patient received the following medications prior to the cardiac CT. 75 mg of oral metoprolol 15 mg of oral ivabradine 0.8 mg of sublingual nitroglycerin The average heart rate at the time of acquisition was 54 bpm and regular. Image Reconstruction Transaxial images were reconstructed at 0.67 mm slide thickness. Data was reviewed interactively on an advanced workstation capable of 2 and 3-dimensional displays in all conventional reconstruction formats, including multiplanar reformations, maximum intensity projections, curved multiplanar reformations, and volume rendered reconstructions. When applicable, selected routine images describing the relevant coronary anatomy and pathology were saved and sent to PACS. Complications None Technical Quality Overall image quality was good. Coronary artery opacification was adequate. Total DLP (Dose-Length Product) is 1187.0 mGy-cm. The reported value represents the total of one or more individual components during the CT acquisition of this date and at this time, and as such, the same value may appear in more than one CT report depending on the interpreting/reporting physicians. COMPARISON None FINDINGS CT Coronary Calcium Scoring LMA (Left Main Artery) = 0 LAD (Left Anterior Descending) = 0 LCX (Left Coronary Circumflex) = 0 RCA (Right Coronary Artery) = 0 Total Calcium Score = 0 using the AJ-130 method. The interpretation of the calcium heart score is based on the following continuum*: 0 = no calcified plaque detected (risk of coronary artery disease is very low ??? less than 5%) 1-10 = calcium detected in extremely minimal levels (risk of coronary diseases is still low ??? less than 10%) 11-100 = mild levels of plaque detected with certainty (mild or minimal narrowing of heart arteries is likely) 101-400 = definite,at least moderate levels of plaque detected (relatively high risk of a heart attack within 3-5 years) >401-999 = extensive levels of plaque detected (high risk of heart attack, high levels of vascular disease are present, high likelihood of at least one significant coronary narrowing) *The calcium heart score quantifies the burden of coronary calcification/plaque in the coronary arteries. The calcium heart score is not able to evaluate the presence or burden of non-calcified (i.e. soft) plaque. There is no identifiable calcification in the aortic valve, mitral annulus or mitral valve, pericardium, or myocardium. Coronary CT Angiography The coronary arterial system is left dominant. Quantitative Stenosis Grading: Left Main (LM): The left main originates normally from the left sinus of Valsalva. The LM bifurcates into the left anterior descending artery and left circumflex artery. The LM is patent with no evidence of atherosclerosis. Left Anterior Descending (LAD) and Diagonal Branches: The LAD gives off 3 diagonal branch(es). The LAD and its branches are patent with no evidence of atherosclerosis. There is no evidence of LAD-myocardial bridge. Left Circumflex (LCX) and Obtuse Marginals (OM): The LCX gives off 2 Obtuse Marginal (OM) branch(es). The LCX and its branches are patent with no evidence of atherosclerosis. Right Coronary Artery (RCA): The RCA originates normally from the right sinus of Valsalva. The RCA and its branches are patent with no evidence of atherosclerosis. Non-Coronary Cardiac Findings: Analysis of the left ventricular (LV) structure and function was performed after 3-D reconstruction of the LV from axial images, with user-corrected automatic contouring for assessment of LV volumes and user-defined reconstruction from oblique planes for measurement of 3-D cardiac structure and function. -The left ventricle systolic function is normal. -There is no left atrial appendage filling defect. Two right pulmonary veins and two left pulmonary veins drain normally into the left atrium. -No pericardial thickening or calcification. -Central and branch pulmonary arteries in the [id number] are unremarkable. -Thoracic aorta within the visualized thoracic aortic-branches in the [id number] is unremarkable. Extracardiac Structures No significant extra-cardiac findings. Note, however, that this study is focused on the cardiac findings. IMPRESSION -Absence of coronary calcification with an Agatston score = 0 using the AJ-130 method. -No evidence of significant flow-limiting atherosclerosis of the coronary arteries. -No evidence of myocardial bridges or coronary anomalies. -CAD-RADS 0. Management recommendations per ACC/AHA guidelines*, as clinically appropriate. *Recommendations: CAD RADS 0: Reassurance. Consider non-atherosclerotic causes of chest pain. CAD RADS 1: Consider non-atherosclerotic causes of chest pain. Consider preventive therapy and risk factor modification. CAD RADS 2: Consider non-atherosclerotic causes of chest pain. Consider preventive therapy and risk factor modification, particularly for patients with nonobstructive plaque in multiple segments. CAD RADS 3: Consider further functional testing. Consider symptom-guided anti-ischemic and preventive pharmacotherapy as well as risk factor modification per published guideline statements. CAD RADS 4A: Consider further functional testing or invasive coronary angiography with revascularization per published guideline statements. Consider symptom-guided anti-ischemic and preventive pharmacotherapy as well as risk factor modification per published guideline statements. CAD RADS 4B: Invasive coronary angiography recommended with revascularization per published guideline statements. Consider symptom-guided anti-ischemic and preventive pharmacotherapy as well as risk factor modification per published guideline statements. CAD RADS 5: Consider invasive angiography and/or viability assessment with revascularization per published guideline statements. Consider symptom-guided anti-ischemic and preventive pharmacotherapy as well as risk factor modification per published guideline statements. CRITICAL RESULT None COMMUNICATION Per this written report The coronary and cardiac findings of this CCTA were reviewed, reported, and signed by Kendrick Angela MD (Spreading Machine Operator) Conclusion Electronically signed by : Essence Angela MD 03/18/2025 12:53:41
[2025-03-17 10:02] LABS: Anion Gap 5.9 mEq/L (5-15); Blood Urea Nitrogen 10 mg/dl (7-17); Carbon Dioxide 28 mmol/L (22.0-30.0); Chloride 105 mmol/L (98-107); Creatinine Clearance Estimated 181 mL/min (50-200); Estimated Glomerular Filt Rate 108 ml/min (>60); GFR (African American) 131 ML/MIN (>60); Glucose 105 mg/dl (74-100); Potassium 3.9 mmoL/L (3.5-5.1); Sodium 135 mmol/L (136-145)
[2025-03-17 10:18] VITALS: BP 141/102; PULSE 70; RESP 16; O2SAT 100
[2025-03-17 10:21] VITALS: BP 162/93; PULSE 68; RESP 16; O2SAT 96
[2025-03-17 10:24] VITALS: BP 110/70; PULSE 60; RESP 16; O2SAT 97
[2025-03-17] MEDS: 0.9 % SODIUM CHLORIDE 50 ML VIAL IV (10:28)
[2025-03-17] MEDS: SODIUM CHLORIDE 0.9% 10ML SYR (RAD ONLY) 10 ML IV (10:29)
[2025-03-17] MEDS: IOPAMIDOL-370 (76%);100ML BOTTLE 85 ML IV (10:29)
== END 2025-03-17 10:45 | disposition home or self-care (01) ==
PROVIDERS: PCP Nurse Practitioner Family; Visit Provider Nurse Practitioner Family
DX: R07.89 Other chest pain (principal); R94.39 Abnormal result of other cardiovascular function study
CPT/HCPCS: 75574; 80048; 81025; Q9967

== ENCOUNTER 2025-03-18 08:34 | Outpatient (CLI) | payer BC, SELFPAY ==
[2025-03-18 09:13] LABS: Basophils % 0.4 % (0.1-2.0); Eosinophils # 0.1 Kmm3 (0.0-0.4); Eosinophils % 0.9 % (0.1-12.0); Hematocrit 38.9 % (37.0-47.0); Immature Granulocytes # 0.02 10^3uL; Immature Granulocytes % 0.3 %; Lymphocytes # 1.7 K/mm3 (0.7-4.5); Lymphocytes % 24.9 % (10-50); Mean Corpuscular HGB Conc 33.4 g/dL (31.8-35.4); Mean Corpuscular Hemoglobin 29.8 pg (27.0-31.2); Mean Corpuscular Volume 89.2 fl (81-99); Mean Platelet Volume 8.7 fl (7.4-10.4); Monocytes # 0.5 K/mm3 (0.1-1.0); Neutrophils # 4.5 K/mm3 (1.8-7.8); Neutrophils % 66.5 % (37.0-80.0); Nucleated Red Blood Cells # 0 10^3/uL; Nucleated Red Blood Cells % 0 %; Platelet Count 312 K/mm3 (142-424); Red Blood Count 4.36 M/mm3 (4.20-5.40); Red Cell Distribution Width 13.8 % (11.5-17.5); Red Cell Distribution Width-SD 44.8 fL; White Blood Count 6.7 K/mm3 (4.8-10.8)
[2025-03-18 09:58] LABS: Alanine Aminotransferase 16 U/L (12-78); Albumin Level 4.3 g/dl (3.5-5.0); Albumin/Globulin Ratio 1.8 (1.1-1.8); Alkaline Phosphatase 76 U/L (38-126); Anion Gap 6.4 mEq/L (5-15); Aspartate Amino Transferase 22 U/L (14-36); Bilirubin,Total 0.5 mg/dl (0.2-1.3); Blood Urea Nitrogen 11 mg/dl (7-17); Calcium 9.3 mg/dl (8.4-10.2); Carbon Dioxide 28 mmol/L (22.0-30.0); Chloride 106 mmol/L (98-107); Estimated Glomerular Filt Rate 108 ml/min (>60); GFR (African American) 131 ML/MIN (>60); Globulin 2.4 g/dL (1.3-3.2); Glucose 87 mg/dl (74-100); Potassium 4.4 mmoL/L (3.5-5.1); Sodium 136 mmol/L (136-145); Total Protein,Serum 6.7 g/dl (6.3-8.2)
[2025-03-18 10:33] LABS: HIV Combo NEGATIVE (Negative)
[2025-03-18 10:42] LABS: Hepatitis C Ab Qual. W/ RFX NEGATIVE (Negative)
[2025-03-19 08:13] LABS: FSH 5.4 mIU/mL (.); LH 2.6 mIU/mL (.)
[2025-03-21 15:32] LABS: Estrogen 313 pg/mL (.)
[2025-03-22 07:21] LABS: Pancreatic Elastase, Fecal >800 (>200)
== END 2025-03-18 23:59 | disposition home or self-care (01) ==
LOC: LAB 08:35
PROVIDERS: Nurse Practitioner Obstetrics & Gynecology; PCP Nurse Practitioner Family; Visit Provider Nurse Practitioner Family
DX: Z01.419 Encounter for gynecological examination (general) (routine) without abnormal findings (principal); R14.0 Abdominal distension (gaseous)
CPT/HCPCS: 36415; 80053; 82656; 82672; 83001; 83002; 85025; 86803; 87389

== ENCOUNTER 2025-05-28 09:50 | Outpatient (CLI) | payer BC, SELFPAY ==
[2025-05-28 08:03] VITALS: BMI 40.6
--- OUTSIDE RECORDS SUMMARY | 2025-05-28 09:56 | XMS_ITS | Clinical Summary ---
Author Organization [facility] Address [address] [place] [address] Phone Care Team Providers Care Report Clerk Name Role Phone Unavailable Primary Care Provider Unavailabl e Allergies No known active allergies Medications MULTIVITAMINS W-IRON (FLINTSTONES PLUS IRON ORAL) Take by mouth 2 times daily. Active norethindrone-e .estradiol-iron 1 mg-20 mcg(24) /75 mg (4) ChewIndications :Contraception management Take 1 Tab by mouth daily. 28 Tab 1 4 Active Additional Information Patient not taking.Reason: Therapy Completed, Reported on 09/10/2024 buPROPion (WELLBUTRIN XL) 150 mg Oral Tablet Sustained Release 24 hr Take 150 mg by mouth every morning. Active omeprazole (PRILOSEC) 40 mg Oral Capsule, Delayed Release(E.C.) Take by mouth daily. Active albuterol (PROVENTIL HFA;VENTOLIN HFA) 90 mcg/actuation Inhl HFA Aerosol Inhaler Inhale 2 Puffs into the lungs every 6 hours as needed for Wheezing. Active traZODone (DESYREL) 50 mg Oral Tablet Take 25 mg by mouth nightly. Active busPIRone (BUSPAR) 5 mg Oral Tablet Take by mouth 2 times daily. Active escitalopram oxalate (LEXAPRO) 5 mg Oral Tablet Take 5 mg by mouth daily. 4 Active EPINEPHrine (EPIPEN) 0.3 mg/0.3 mL Inj Auto-Injector Inject 0.3 mg into the muscle as needed for Anaphylaxis. 3 Active ascorbic acid, vitamin C, (VITAMIN C) 250 mg Oral Tablet Take 1 Tablet by mouth daily. Active Cholecalciferol , Vitamin D3, 50 mcg (2,000 unit) Oral Tablet Take 1 Tablet by mouth daily. Active metFORMIN (GLUCOPHAGE XR) 750 mg Oral ER 24 hr tablet Take 1 Tablet by mouth daily. with food for one week then start 750 mg twice daily 7 Tablet 4 Active Additional Information Patient not taking.Reported on 09/10/2024 ergocalciferol (DRISDOL) 1,250 mcg (50,000 unit) Oral Capsule take 1 capsule daily for two weeks, then take 1 capsule twice weekly for 12 weeks 48 Capsule 4 Active Additional Information Patient not taking.Reported on 09/10/2024 ascorbic acid, vitamin C, (VITAMIN C) 500 mg Oral Tablet take 500 mg daily 4 Active Active Problems Problem Noted Date Diagnosed Date IFG (impaired fasting glucose) 04/12/2022 Metabolic syndrome 04/12/2022 GOVIND on CPAP 04/11/2022 Mixed hyperlipidemia 04/11/2022 ALEXX (generalized anxiety disorder) 04/11/2022 Vitamin D deficiency 04/11/2022 Class 2 severe obesity due t o excess calories with serious comorbidity in adult 04/11/2022 Resolved Problems Problem Noted Date Diagnosed Date Resolved Date Failed forceps delivery 01/19/201301/10 labor 01/01/2013 02/04/2014 Twin , twins dichor ionic and diamniotic 07/30/2012 02/04/2014 Immunizations Immunization Administration Dates Next Due MMR 01/20/2013 Rho (D) Immune Globulin 01/20/2013,11/19/2012, Tdap 01/21/2013 Surgical History Surgery Date Site/Laterality Comments LAPAROSCOPY x 2 TONSILLECTOMY SECTION 01/19/2013 Abdomen/N/A Surgeon: Rehana Spence MD; Location: [facility]; Service: DENTAL SURGERY dental implant Medical History Medical History Date Comments Asthma Heartburn with Clotting disorder needed blood transfusion with last delivery Allergy Anemia Anxiety Arthritis Depression Sleep apnea Family History Medical History Relation Name Comments High Blood Pressure Father Urolithiasis Father Bleeding Prob Maternal Uncle Cancer Mother cervical Stroke Paternal Grandfather Depression Sister Urolithiasis Sister Relation Name Status Comments Father Alive Maternal Uncle Mother Alive Paternal Grandfather Sister Alive Social History Tobacco Use Types Packs/Day Years Used Date Smoking Tobacco: Never Smokeless Tobacco: Never Tobacco Cessation:Counseling Given: Not Answered Alcohol Use Standard Drinks/Week Comments Yes 0.8 (1 standard drink = 0.6 oz p ure alcohol) occasionally Sexually Active Control Partners Comments Yes Male Comments No Sex and Gender Information Value Date Recorded Sex Assigned at Not on file Legal Sex Female 3:56 PM EDT Gender Identity Not on file Sexual Orientation Not on file Obstetrics History Para Term AB IAB SAB Ectopic Multiple Livin g Live Births 3 3 2 1 1 4 3 Date Outcome GA Total Labor Labor//3rd Weight Sex Type Anes PTL Aspen A1 A5 Name Clin 2008 34w 0d M Vag-S pont Epidur al willet t 2010 Term 39w 0d 0h 05m 8 lb 10.4 oz (3.924 kg) M Vag-S pont Epidur al Livin g 8 9 MCPHI LLIPS ,APRI L BABY A Willet tNathaniel MD Delivery Location:[facility] 2012 Term 37w 0d 6 lb 6.7 oz (2.912 kg) M Vag-S pont Epidur al N Livin g 7 8 MCPHI LLIPS ,APRI L BABY A Mikael Barker , Rehana posada MD Delivery Location:[facility] 2012 Term 37w 0d 6 lb 15 oz (3.147 kg) F CS-LT ranv Epidur al N Livin g 4 8 MCPHI LLIPS ,APRI L BABY B Mikael Barker , Rehana posada MD Delivery Location:[facility] Last Filed Vital Signs Vital Sign Reading Time Taken Comments Blood Pressure 124/78 09/10/2024 11:33 AM EDT Pulse 83 09/10/2024 11:33 AM EDT Temperature 36.7 C (98.1 F) 01/22/2013 9:05 AM EDT Respiratory Rate 16 09/10/2024 11:33 AM EDT Oxygen Saturation 97% 01/22/2013 9:05 AM EDT Inhaled Oxygen Concentration - - Weight 96.6 kg (213 lb) 09/10/2024 11:33 AM EDT Height 154.9 cm (5' 1 ) 09/10/2024 11:33 AM EDT Body Mass Index 40.25 09/10/2024 11:33 AM EDT Plan of Treatment Health Maintenance Due Date Last Done Comments Annual Wellness Exam 1982 Hepatitis B Vaccine (1 of 3 - 19+ 3-dose series) 1998 HPV/Pap Cotest 2009 Cervical Cancer Screening 02/02/2017 Pap Smear 02/02/2017 02/02/2014, 07/30/2012 Breast Cancer Screening 2019 COVID-19 Vaccine (2023-2 5 season) 2024 Cologuard 2024 Colon Cancer Screening 2024 Colonoscopy 2024 FIT 2024 Sigmoidoscopy 2024 Virtual Colonography 2024 Influenza Vaccine (#1) 2025 DTaP/TDaP/Td (3 - Td or Tdap) 05/10/2033, 01/21/2013 Meningococcal B Vaccine Aged Out No l onger eligible based on patient's age to complete this topic Pneumococcal Vaccine 0-49 Aged Out No longer eligible based on patient's age to complete this topic Procedures Procedure Name Priority Date/Time Associated Diagnosis Comments BONDERIZER CYTOLOGY REPORT Routine 02/02/2014 3 :33 AM EDT from Last 3 Months or Most Recently Relevant to Health Maintenance Results * BONDERIZER CYTOLOGY REPORT (02/02/2014 3:33 AM EDT) Channeler Runner Cytology Report PATIENT NAME:MIHAI February Channeler Runner Cytology Report Accession Number Collected Date/Time Received Date/Time [id number] 02/02/14 03:33 EDT 02/03/14 04:05 EDT GY Specimen Source Specimen Vag/Cerv/Endocx?: Cerv/Endocerv Statement of Adequacy Satisfactory for Evaluation. Transformation Zone Present. Diagnosis NEGATIVE FOR INTRAEPITHELIAL LESION OR MALIGNANCY. Comment The Pap Smear is a screening test that aids in the detection of cervical cancer and cancer precursors. Both false positive and false negative results can occur. The test should be used at regular intervals, and positive results should be confirmed before definitive therapy. Processed using the ThinPrep Director Outcomes automated cytology screening device ([employer]). Manufacturing Production Technician: TRACEE 02/08/2014 Completed by: CLAUDE Decker (Electronically signed by) 02/08/2014 [facility] 02/02/2014 3:33 AM EDT us Rehana Spence MD PATHOLOGY ORDERAB LES Final Result [facility] [address] [place] [address] from Last 3 Months or Most Recently Relevant to Health Maintenance Insurance [employer] PPO Member Subscriber Plan / Payer (Ef fective 2023-Present) Name:TORRI GARCIA Relation to Subscriber:Spouse Name:JENIFFER GARCIA Date of :1970 Address: [address] [address] Payer ID:[id number] (NAIC) Type:Not on file Address: [id number] [place] [id number] ANTHEM PPO Member Subscriber Plan / Payer (Ef fective 2023-Present) Name:TORRI GARCIA Relation to Subscriber:Spouse Name:MIHAIJENIFFER Date of :1970 Address: [address] [place] [place] [address] Payer ID:[id number] ([facility]) Type:Not on file Address: [address] [place] [phone] Advance Directives For more information, please contact: [phone] * Full Code (Latest Code Status on File) Date Activated Date Inactivated Comments 01/19/2013 10:03 AM 01/22/2013 9:48 PM
[2025-05-28 10:17] LABS: Chloride 104 mmol/L (98-107); Potassium 4.1 mmoL/L (3.5-5.1); Sodium 138 mmol/L (136-145)
[2025-05-28 10:20] LABS: Anion Gap 10.1 mEq/L (5-15); Blood Urea Nitrogen 8 mg/dl (7-17); Carbon Dioxide 28 mmol/L (22.0-30.0); Creatinine Clearance Estimated 182 mL/min (50-200); Creatinine,Serum 0.60 mg/dl (0.52-1.04); Estimated Glomerular Filt Rate 108 ml/min (>60); GFR (African American) 131 ML/MIN (>60)
[2025-05-28 10:21] LABS: Calcium 9.0 mg/dl (8.4-10.2); Glucose 111 mg/dl (74-100)
[2025-05-28 10:25] LABS: Hematocrit 40.7 % (37.0-47.0); Hemoglobin 12.9 g/dL (12.2-16.2); Immature Granulocytes % 0.3 %; Mean Corpuscular HGB Conc 31.7 g/dL (31.8-35.4); Mean Corpuscular Hemoglobin 28.0 pg (27.0-31.2); Mean Corpuscular Volume 88.3 fl (81-99); Nucleated Red Blood Cells % 0 %; Platelet Count 272 K/mm3 (142-424); Red Blood Count 4.61 M/mm3 (4.20-5.40); Red Cell Distribution Width-SD 43.8 fL; White Blood Count 6.7 K/mm3 (4.8-10.8)
[2025-05-28 10:40] LABS: HCG Qualitative, Serum Negative (Negative)
== END 2025-05-28 23:59 | disposition home or self-care (01) ==
LOC: PREOP 09:52
PROVIDERS: PCP Nurse Practitioner Family; Visit Provider Nurse Practitioner Obstetrics & Gynecology
DX: Z01.812 Encounter for preprocedural laboratory examination (principal)
CPT/HCPCS: 80048; 84703; 85025

== ENCOUNTER 2025-06-02 10:31 | Outpatient (CLI) | payer BC, SELFPAY ==
--- OUTSIDE RECORDS SUMMARY | 2025-06-03 10:39 | XMS_ITS | Clinical Summary ---
Author Organization [facility] Address [address] [place] [address] Phone Care Team Providers Care Play Therapist Name Role Phone Unavailable Primary Care Provider [...] 01/19/2013 Abdomen/N/A Surgeon: Rehana Spence MD; Location: [facility]; Service: DENTAL SURGERY dental implant Medical [...] L BABY A Willet tNathaniel MD Delivery Location:[facility] 2012 Term 37w 0d 6 lb 6.7 oz (2.912 kg) M Vag-S pont Epidur al N Livin g 7 8 MCP[place] LLIPS ,APRI L BABY A Mikael Barker , Rehana posada MD Delivery Location:[facility] 2012 Term 37w 0d 6 lb 15 oz (3.147 kg) F CS-LT ranv Epidur al N Livin g 4 8 MCP[place] LLIPS ,APRI L BABY B Mikael Barker , Rehana posada MD Delivery Location:[facility] Last Filed Vital Signs Vital Sign Reading [...] Procedure Name Priority Date/Time Associated Diagnosis Comments PATIENT OFFICE REP CYTOLOGY REPORT Routine 02/02/2014 3 :33 AM EDT from Last 3 Months or Most Recently Relevant to Health Maintenance Results * PATIENT OFFICE REP CYTOLOGY REPORT (02/02/2014 3:33 AM EDT) [employer] Cytology Report PATIENT NAME:MIHAI February [employer] Cytology Report Accession Number Collected Date/Time Received Date/Time [id number] 02/02/14 03:33 EDT 02/03/14 04:05 EDT GY [...] before definitive therapy. Processed using the [employer]in[employer] Sharepoint Web Developer automated cytology screening device (ArmorText). Camp Attendant: TRACEE 02/08/2014 Completed by: CLAUDE Decker (Electronically signed by) 02/08/2014 [facility] 02/02/2014 3:33 AM EDT us Rehana Spence MD PATHOLOGY ORDERAB LES Final Result [facility] [address] [place] [address] from Last 3 Months or Most Recently Relevant to Health Maintenance Insurance [employer] P[employer] Member Subscriber Plan / Payer (Ef fective 2023-Present) Name:TORRI GARCIA Relation to Subscriber:Spouse Name:JENIFFER GARCIA Date of :1970 Address: [address] [place] [address] Payer ID:[id number] (NAIC) Type:Not on file Address: [address] [place] [phone] ANTHE[employer] PPO Member Subscriber Plan / Payer (Ef fective 2023-Present) Name:TORRI GARCIA Relation to Subscriber:Spouse Name:MIHAIJENIFFER Date of :1970 Address: [address] [place] [place] [address] Payer ID:[id number] ([facility]) Type:Not on file Address: [address] [place] [phone] Advance Directives For more information, please contact: [phone] * Full Code (Latest Code Status on File) Date Activated Date Inactivated Comments 01/19/2013 10:03 AM 01/22/2013 9:48 PM
== END 2025-06-02 23:59 | disposition home or self-care (01) ==
LOC: LAB.DROPOF 06-03 10:32
PROVIDERS: PCP Nurse Practitioner Obstetrics & Gynecology; Visit Provider Nurse Practitioner Obstetrics & Gynecology
DX: R69 Illness, unspecified (principal)
CPT/HCPCS: J2004

== ENCOUNTER 2025-06-02 10:41 | Observation (INO) | payer BC, SELFPAY ==
[2025-05-28 13:05] VITALS: BMI 40.6
[2025-06-02] VITALS (20 sets, daily range): BP systolic 122–159; BP diastolic 62–101; PULSE 82–102; RESP 12–20; TEMP 36.4–43; O2SAT 92–99
[2025-06-02] MEDS: LACTATED RINGERS 1000ML 1,000 ML 25 ML IV (06:23)
[2025-06-02] MEDS: LIDOCAINE 1% 20ML MDV 20 ML (08:09)
--- NOTE | 2025-06-02 08:14 | P.PNANES_ITS ---
[facility] Disclaimer: The information contained in this section may have been updated after the patient was seen, as this information can be updated by other users. Medical History Anxiety History of COVID-19 Asthma History of gastroesophageal reflux (GERD) History of anemia Endometrial polyp Abnormal uterine bleeding due to endometrial polyp delivery delivered Surgical History History of tonsillectomy H/O dilation and curettage History of hysteroscopy History of delivery Family History Other Family history of CVA Family history of heart disease Social History Smoking Status: Never smoker alcohol intake: never substance use type: denies use current occupational status: unemployed Travel in the last 8 weeks?: None household members: spouse and children Have you lived/traveled outside US in past 30 days?: No Contact w/someone who lives/traveled outside US past 30 days?: No Exposure to someone with infectious disease in past 14 days?: No Do you have a fever (greater than 100.4 F or 38 C)?: No Have you tested positive for COVID-19?: No Exposed to someone with COVID-19 in past 14 days?: No Do you have a sore throat?: No Do you have a cough?: No Do you have any weakness?: No Do you have any diarrhea?: No Are you experiencing any unusual bleeding?: No Do you have any muscle aches/pain?: No Do you have any abdominal pain?: No Are you experiencing loss of taste or smell?: No [facility] Anesthesia Checklist Patient Identification Patient Identification: Verbal (Name & ) Structural Data Admitted From: Home Planned Operative Procedure/s: [facility] Consent for Planned Operative Procedure(s) Verified: Yes NPO Status Verified Time NPO: 00:00 Additional verifications Anesthesia Reactions: No Hx Blood Transfusions: No Blood Transfusion Reaction: No Airway Assessment Mallampati Score:: Class II C-Spine Mobility Assessed: Yes TMJ Mobility Assessed: Yes Dentition: Good Dentition Neurological Assessment Level of Consciousness: Awake, Alert and Appropriate Anesthesia Plan Anesthesia Risk discussed: Yes Anesthesia Plan: Verified ASA Class: II Anesthesia Type: General
[2025-06-02] MEDS: LIDOCAINE 1% W/EPI 1:100,000 20ML VIAL 20 ML IJ (09:01)
--- NOTE | 2025-06-02 10:06 | EXP.ANES.I ---
[facility] Anesthesia Record Part I Anesthesia Record I Intake, IV Amount: 2,200 Hydration: Adequate Estimated blood loss (mL): 150 Urine output (mL): 300 Blood Pressure: 142/77 SaO2: 95 Pulse Rate: 90 Airway Patency: Patent Respiratory Rate: 12 Temperature: 97.8 F Patient is:: Drowsy and Stable Stable to PACU at:: 10:04
--- NOTE | 2025-06-02 10:11 | EXP.OP.NOTE ---
Date of procedure: 06/02/25 Pre-op Diagnosis:: Menorrhagia, endometrial polyps, uterine hypertrophy Post-op Diagnosis:: Menorrhagia, endometrial polyps, uterine hypertrophy Procedure performed:: Laparoscopically assisted vaginal hysterectomy, bilateral salpingectomy Surgeon:: Damion Purvis MD Nuclear Test Technician(s):: Dr. Moore BPM SOLUTION ARCHITECT:: Amilcar Tadeo Anesthesia: GETA Estimated blood loss (mL): 150 Clinical Note:: She is a 44-year-old lady who complains of extremely heavy periods. Ultrasound confirmed that she had a 2 cm polyp within the endometrial cavity. Her uterus was also slightly enlarged. As result of this she elected to have a laparoscopically assisted vaginal hysterectomy and bilateral salpingectomy. The risks and benefits of surgery discussed the patient prior to surgery. Operative findings:: She had an anteverted bulky uterus. The ovaries and tubes appeared normal. The deep pelvis appeared normal. Upper abdomen appeared normal. Operative note:: She was taken to the operating room where general anesthesia was found be adequate. She was prepped and draped in normal sterile fashion in the semilithotomy position. A weighted speculum was placed in the vagina and the anterior lip of the cervix was grasped with a tenaculum. An acorn uterine manipulator was then placed within the cervical os. I then changed gloves. I injected 10 cc of 0.5% ropivacaine around the umbilicus and made a small incision within the umbilicus. I inserted a Veress needle into the abdominal cavity. The abdominal cavity was then insufflated with carbon dioxide gas to a pressure of 20 mmHg. I then inserted an 11 mm trocar under direct vision. I injected through and through the pubic hairline, made a small incision here and inserted a 5 mm trocar under direct vision. I identified the inferior epigastric arteries on the left side, went lateral to these and injected through and through. I then made a small incision and inserted an 11 mm trocar under direct vision. A similar 11 mm trocar was placed on the right side. The right round ligament was then grasped and cut through with harmonic scalpel. This was followed by opening up the peritoneum anteriorly to the midline. I then grasped the tube on the right side and cut through this. This is followed by cutting through the left utero-ovarian ligament. I used Harmonic scalpel on the coagulation mode. I then took down the posterior aspect of the broad ligament to the level of the uterosacral ligament. I then skeletonized the uterine arteries on the right side and placed hemoclips on these. Using the harmonic scalpel on coagulation mode adjacent to the cervix I then took down these uterine arteries. I then further freed up the bladder anteriorly and laterally on the right side. I then turned my attention to the left side where I grasped the left round ligament. I then cut through the left round ligament. I then took down the anterior peritoneum to the midline joining up with the other side. I further dissected the bladder off. The posterior aspect of the left broad ligament was then taken down with harmonic scalpel. I skeletonized the uterine arteries on the left side. I applied hemoclips to the uterine arteries and staying adjacent to the cervix on the left side I took down the uterine arteries with harmonic scalpel on coagulation mode. I further freed up the bladder. We then assured hemostasis. I then grasped the distal end of the right tube and using harmonic scalpel I cut along the mesosalpinx. The tube was removed through the 11 mm trocar site. This was similarly performed on the patient's left side. After once again assuring hemostasis we then turned our attention to the vaginal portion of the surgery. The patient was placed in the lithotomy position and a weighted speculum was placed in the vagina. The anterior and posterior lip of the cervix were grasped with Beatty tenacula. I then injected 20 cc of 1% Xylocaine with epinephrine circumferentially about the cervix. I then circumscribed the cervix. I opened up in the posterior cul-de-sac using Razo scissors. I then placed a long weighted speculum through the defect. The left uterosacral ligament was then clamped cut and suture-ligated and tagged. I then clamped cut and suture-ligated and tagged the right uterosacral ligament. I then grasped the anterior vaginal mucosa and using both sharp and blunt dissection dissected off the bladder. I then opened sharply into the anterior cul-de-sac. A [place] retractor was placed through this defect. Both left and right uterine arteries were then clamped cut and suture-ligated. This freed up the uterus and it was removed through the vagina. Then inserted a short weighted speculum. Posterior cuff was then closed using running 2-0 Vicryl suture in a locked fashion. I then lysed a Levy suture using 0 PDS. I passed it through the vagina and the peritoneum and then through the left perirectal fascia. I then plicated across the posterior peritoneum and through the right perirectal fascia. This was then passed through the peritoneum and vagina and left to be tied at the end. The vaginal cuff was then closed using running 0 Vicryl suture in a locked fashion from left to right from anterior to posterior. A Agrawal cath was then placed in the bladder. Clear urine was seen to flow. I then changed gloves and once again insufflated the abdominal cavity with carbon dioxide gas. Hemostasis was once again assured and I rinsed the pelvis. I then sprayed Michelle all around the pelvis. I let the gas out of the abdomen and once again hemostasis was assured. The secondary trochars were then removed under direct vision and the sites were hemostatic. The primary trocar and camera were removed together. No bowel was seen to follow. The 11 mm trocar sites were closed deeply with [id number] 2-0 Vicryl suture followed by running subcuticular 4-0 Monocryl suture. 5 mm trocar site was closed with subcuticular 4-0 Monocryl suture. Sterile dressings were applied. The patient tolerated procedure well and was taken to the recovery room in excellent condition. All sponge instrument and needle counts were correct. The estimated blood loss was approximately 150 cc. Condition: stable Disposition: PACU Specimens:: Uterus and fallopian tubes Complications:: None
--- NOTE | 2025-06-02 10:30 | EXP.HP ---
History of Present Illness *Admission Date: 06/02/25 *Reason for visit:: Menorrhagia, endometrial polyps, uterine hypertrophy *History of present illness: She is a 44-year-old lady who complains of extremely heavy periods. She is known to have a large polyp in the lining of the uterus and uterine hypertrophy. She has tried control pills in the past. After having discussed the risks and benefits she elected to have a laparoscopic-assisted vaginal hysterectomy and bilateral salpingectomy. [facility] Disclaimer: The information contained in this section may have been updated after the patient was seen, as this information can be updated by other users. Medical History Anxiety History of COVID-19 Asthma History of gastroesophageal reflux (GERD) History of anemia Endometrial polyp Abnormal uterine bleeding due to endometrial polyp delivery delivered Surgical History History of tonsillectomy H/O dilation and curettage History of hysteroscopy History of delivery Family History Family history of heart disease Family history of CVA Social History Smoking Status: Never smoker alcohol intake: never substance use type: denies use current occupational status: unemployed Travel in the last 8 weeks?: None household members: spouse and children Have you lived/traveled outside US in past 30 days?: No Contact w/someone who lives/traveled outside US past 30 days?: No Exposure to someone with infectious disease in past 14 days?: No Do you have a fever (greater than 100.4 F or 38 C)?: No Have you tested positive for COVID-19?: No Exposed to someone with COVID-19 in past 14 days?: No Do you have a sore throat?: No Do you have a cough?: No Do you have any weakness?: No Do you have any diarrhea?: No Are you experiencing any unusual bleeding?: No Do you have any muscle aches/pain?: No Do you have any abdominal pain?: No Are you experiencing loss of taste or smell?: No Other Medical History Have you received the Flu Vaccine for this season: No Have you received the Pneumonia Vaccine: No Review of Systems Review of Systems Review of systems:: pertinent systems reviewed and negative unless documented below Meds Home Medications and Allergies Home Medications ?Medication ?Instructions ?Recorded ?Confirmed ?Type epinephrine 0.3 mg/0.3 mL 0.3 mg (0.3 mL) IM Q5-15M PRN 05/10/23 05/28/25 Rx injection, auto-injector (EpiPen hypersensitivity reaction #2 ea 2-Flo) escitalopram oxalate 5 mg tablet 5 mg PO DAILY #30 tabs 01/31/24 05/24/25 Rx ascorbic acid (vitamin C) 500 mg 500 mg PO DAILY 01/05/25 05/28/25 History capsule cholecalciferol (vitamin D3) 250 250 mcg PO DAILY 01/05/25 05/28/25 History mcg (10,000 unit) tablet cyanocobalamin (vitamin B-12) 1,000 mcg sublingual DAILY 01/05/25 05/28/25 History 1,000 mcg/mL sublingual drops multivitamin 1 tab PO DAILY 01/25/25 05/28/25 History cholecalciferol (vitamin D3) 1,250 1,250 mcg PO WEEKLY #8 caps 03/17/25 05/28/25 Rx mcg (50,000 unit) capsule triamcinolone acetonide 0.1 % 1 applic topical BID #15 grams 04/28/25 05/28/25 Rx topical ointment omeprazole 40 mg capsule,delayed 40 mg PO DAILY 06/02/25 05/28/25 History release New Prescriptions to Start Prescriptions: Allergies Allergy/AdvReac Type Severity Reaction Status Date / Time bee venom protein (honey bee) Allergy Rash Verified 06/02/25 06:23 Exam Data for Last 24 hours Vital signs and Labs for Last 24 Hours: Temp Pulse Resp BP Pulse Ox O2 Del Method 98.5 F 82 18 135/79 97 Room Air 06/02/25 10:24 06/02/25 10:24 06/02/25 10:24 06/02/25 10:24 06/02/25 10:24 06/02/25 10:24 Laboratory Results - last 24 hr 06/02/25 06:32: Blood Type O Negative, Antibody Screen Negative I & O for Last 24 hours: Intake & Output 05/30/25 05/31/25 06/01/25 06/02/25 11:59 11:59 11:59 11:59 Intake Total 2199 / 2200 Balance 2199 / 2199 Constitutional Constitutional: no acute distress and obese *Routine HEENT Exam Head: Present normocephalic Eye: Present EOMI and PERRL ENT: Present mucous membranes moist *Routine Neck Exam Neck: Present supple; Absent lymphadenopathy *Routine Respiratory Exam Respiratory: Present CTA bilaterally and normal respiratory effort; Absent accessory muscle use *Routine Cardiovascular Exam Cardiovascular: Present RRR *Routine Abdominal Exam Abdominal: Present soft and normoactive bowel sounds; Absent tenderness *Routine Rectal Exam Rectal:: deferred *Routine Genitalia Exam Genitalia:: deferred *Routine Extremities Exam Extremities: Absent cyanosis, clubbing or edema *Routine Skin Exam Skin: Present warm; Absent rash *Routine Neurological Exam Neurological: Present alert and oriented X3 Assessment and Plan *Assessment and plan (1) Irregular menstruation: Status: Acute Category: Medical Code(s): N92.6 - Irregular menstruation, unspecified (2) Endometrial polyp: Status: Acute Category: Medical Code(s): N84.0 - Polyp of corpus uteri (3) Menorrhagia: Status: Acute Qualifiers: Menorrhagia type: with regular cycle Qualified Code(s): N92.0 - Excessive and frequent menstruation with regular cycle Category: Medical Code(s): N92.0 - Excessive and frequent menstruation with regular cycle Plan 1. She is admitted for laparoscopic-assisted vaginal hysterectomy and bilateral salpingectomy. 2. She is known to have an endometrial polyp and uterine hypertrophy. She has tried the pill in the past without any relief of her menorrhagia.
[2025-06-02] MEDS: ONDANSETRON 4MG/2ML VIAL 4 MG IV ×2 (10:35→20:16)
--- NOTE | 2025-06-02 10:43 | PC.NURSE ---
arrived by stretcher from surgery
[2025-06-02] MEDS: SODIUM CHLORIDE 0.9% 25ML BAG 25 ML IV (12:43)
[2025-06-02] MEDS: PROMETHAZINE HCL 25MG/ML 1ML VIAL 12.5 MG IV (12:43)
--- NOTE | 2025-06-02 14:09 | EXP.ANES.II ---
[facility] Anesthesia Record Part II Anesthesia Record Part II Discharge Time: 10:34 Destination: Medical Surgical Department PACU nurse assessment reviewed?: Yes Patient Condition:: Good Anesthesia Complications:: None Swallowing reflex intact?: Yes Airway Patency: Patent Cyanosis?: No Blood Pressure: 138/85 SaO2: 95 Respiratory Rate: 18 Pulse Rate: 84 Temperature: 98.5 F Mental Status: Alert & Oriented Pain level:: 0 Nausea and/or vomitting:: None Intake, IV Amount: 0 Hydration: Adequate
[2025-06-02] MEDS: ACETAMINOPHEN 500MG TAB 1000 MG PO ×2 (16:11→22:36)
[2025-06-02] MEDS: LACTATED RINGERS 1000ML 1,000 ML 125 ML IV ×3 (16:12→23:25)
[2025-06-02] MEDS: KETOROLAC 30MG/ML VIAL 30 MG IV ×2 (16:12→22:38)
--- NOTE | 2025-06-02 17:14 | PC.NURSE ---
PT IS RESTING IN BED. ALERT AND ORIENTED X4. PT HAS BEEN DROWSY SINCE ARRIVING TO THE FLOOR FROM SURGERY. MEDICATED PER MAR FOR PAIN AND NAUSEA. ABDOMEN SOFT/TENDER WITH HYPOACTIVE BOWEL SOUNDS. DRESSINGS NOTED TO ABDOMEN C/D/I. MILD VAGINAL BLEEDING NOTED. TOLERATING CLEAR LIQUIDS. SKUDS NOTED TO BLE. POST OP VSS. WILL CONTINUE TO MONITOR.
[2025-06-02] MEDS: OXYCODONE 5MG IMMEDIATE RELEASE TABLET 10 MG PO (20:07)
[2025-06-03 03:44] VITALS: BP 111/58; PULSE 83; RESP 16; TEMP 36.8; O2SAT 95; BMI 44.3
[2025-06-03] MEDS: LACTATED RINGERS 1000ML 1,000 ML 125 ML IV (04:21)
[2025-06-03] MEDS: KETOROLAC 30MG/ML VIAL 30 MG IV ×2 (04:23→11:26)
[2025-06-03] MEDS: ACETAMINOPHEN 500MG TAB 1000 MG PO ×2 (04:27→11:28)
--- NOTE | 2025-06-03 05:28 | PC.NURSE ---
Pt. is alert and orientated x 4. Pt is on room air. Pt. is post op LAP vaginal hysterectomy and bilateral salpingectomy. Pt has 4 LAP sites to abdomen RUQ, above umbilicus, LUQ and one below the umbilicus. all sites have Telfa and teraderm dressings in place. Dressings are clean, dry, intact. Pt. has had minimal pain this shift. She is on scheduled meds and tolerating well. Pt.has minimal vaginal bleeding. Pt. has a Agrawal cath in place, patent and draining yellow urine. Abd. soft and tender. Pt. tolerating clear liquid diet. Pt. resting in bed with eyes closed, Resp. easy and non labored. pt's sister at bedside overnight. IV fluids infusing. Personal items and call martinez in reach. Bed in low locked position. safety measure in place.
[2025-06-03 06:36] LABS: Hematocrit 32.5 % (37.0-47.0); Hemoglobin 10.8 g/dL (12.2-16.2); Immature Granulocytes % 0.4 %; Mean Corpuscular HGB Conc 33.2 g/dL (31.8-35.4); Mean Corpuscular Hemoglobin 28.6 pg (27.0-31.2); Mean Corpuscular Volume 86.2 fl (81-99); Nucleated Red Blood Cells % 0 %; Platelet Count 226 K/mm3 (142-424); Red Blood Count 3.77 M/mm3 (4.20-5.40); Red Cell Distribution Width-SD 42.1 fL; White Blood Count 10.3 K/mm3 (4.8-10.8)
[2025-06-03 07:23] LABS: Anion Gap 6.0 mEq/L (5-15); Blood Urea Nitrogen 8 mg/dl (7-17); Calcium 8.2 mg/dl (8.4-10.2); Carbon Dioxide 26 mmol/L (22.0-30.0); Chloride 107 mmol/L (98-107); Creatinine Clearance Estimated 77 mL/min (50-200); Creatinine,Serum 0.70 mg/dl (0.52-1.04); Estimated Glomerular Filt Rate 90 ml/min (>60); GFR (African American) 109 ML/MIN (>60); Glucose 110 mg/dl (74-100); Potassium 4.0 mmoL/L (3.5-5.1); Sodium 135 mmol/L (136-145)
[2025-06-03 07:47] VITALS: BP 117/70; PULSE 73; RESP 16; TEMP 36.7; O2SAT 97
--- NOTE | 2025-06-03 08:51 | EXP.DC.SUM ---
General Admission date:: 06/02/25 Discharge date: 06/03/25 HPI HPI HPI: She is a 44-year-old lady who complains of extremely heavy periods. She is known to have a large polyp in the lining of the uterus and uterine hypertrophy. She has tried control pills in the past. After having discussed the risks and benefits she elected to have a laparoscopic-assisted vaginal hysterectomy and bilateral salpingectomy. Hospital Course Hospital Course Hospital Course: On June 02, 2025 she underwent a laparoscopically assisted vaginal hysterectomy and bilateral salpingectomy. She has done well postoperatively and has remained afebrile throughout her hospitalization. She is eating and drinking and ambulating. She denies any chest pain, shortness of breath or calf tenderness. Her incisions are clean and dry. Her blood counts are normal. She will be discharged home later today to follow-up with me in 2 weeks time. She was given the usual instructions with respect to limiting her activity, driving and sexual activity. She was given instructions with respect to wound care. She will take a stool softener as necessary. She was given a prescription for Percocet 5/325 number 20 tablets. She will take ibuprofen as well at home. Her condition on discharge is stable and improved. Exam Data for Last 24 hours Vital signs and Labs for Last 24 Hours: Temp Pulse Resp BP Pulse Ox O2 Del Method O2 Flow Rate 98.1 F 73 16 117/70 97 Room Air 2 06/03/25 07:47 06/03/25 07:47 06/03/25 07:47 06/03/25 07:47 06/03/25 07:47 06/03/25 08:00 06/02/25 17:00 Laboratory Results - last 24 hr 06/02/25 06:32: Blood Type O Negative, Antibody Screen Negative 06/03/25 06:26: WBC 10.3, RBC 3.77 L, Hgb 10.8 L, Hct 32.5 L, MCV 86.2, MCH 28.6, MCHC 33.2, RDW 13.6, Plt Count 226, MPV 8.6, Neut % (Auto) 79.8, Lymph % (Auto) 12.0, Garden % (Auto) 7.7, Eos % (Auto) 0.0 L, Baso % (Auto) 0.1, Neut # (Auto) 8.2 H, Lymph # (Auto) 1.2, Garden # (Auto) 0.8, Eos # (Auto) 0.0, Baso # (Auto) 0.0, Sodium 135 L, Potassium 4.0, Chloride 107, Carbon Dioxide 26, Anion Gap 6.0, BUN 8, Creatinine 0.70, Estimated Creat Clear 77, Estimated GFR 90, Est GFR ( Amer) 109, Glucose 110 H, Calcium 8.2 L I & O for Last 24 hours: Intake & Output 05/31/25 06/01/25 06/02/25 06/03/25 11:59 11:59 11:59 11:59 Intake Total 2199 / 2199 Output Total 2049 Balance 2199 65 / 65 Weight 234 lb 14.4 oz Constitutional Constitutional: no acute distress *Routine HEENT Exam Head: Present normocephalic *Routine Neck Exam Neck: Present full ROM *Routine Respiratory Exam Respiratory: Present CTA bilaterally and normal respiratory effort; Absent accessory muscle use *Routine Cardiovascular Exam Cardiovascular: Present RRR *Routine Abdominal Exam Abdominal: Present soft and normoactive bowel sounds; Absent tenderness, distended, rebound or guarding Comments: Her incisions are clean and dry. *Routine Extremities Exam Extremities: Present full ROM; Absent calf tenderness Results Data Completed and Pending Labs on day of discharge: Labs from last 24 hours 06/03/25 06/02/25 06:26 06:32 WBC 10.3 RBC 3.77 L Hgb 10.8 L Hct 32.5 L MCV 86.2 MCH 28.6 MCHC 33.2 RDW 13.6 Plt Count 226 MPV 8.6 Neut % (Auto) 79.8 Lymph % (Auto) 12.0 Garden % (Auto) 7.7 Eos % (Auto) 0.0 L Baso % (Auto) 0.1 Neut # (Auto) 8.2 H Lymph # (Auto) 1.2 Garden # (Auto) 0.8 Eos # (Auto) 0.0 Baso # (Auto) 0.0 Sodium 135 L Potassium 4.0 Chloride 107 Carbon Dioxide 26 Anion Gap 6.0 BUN 8 Creatinine 0.70 Estimated Creat Clear 77 Estimated GFR 90 Est GFR ( Amer) 109 Glucose 110 H Calcium 8.2 L Blood Type O Negative Antibody Screen Negative DS: Diagnosis Discharge Diagnosis (1) Irregular menstruation: Status: Acute Code(s): N92.6 - Irregular menstruation, unspecified (2) Endometrial polyp: Status: Acute Code(s): N84.0 - Polyp of corpus uteri (3) Menorrhagia: Status: Acute Code(s): N92.0 - Excessive and frequent menstruation with regular cycle Qualifiers: Menorrhagia type: with regular cycle Qualified Code(s): N92.0 - Excessive and frequent menstruation with regular cycle Meds Home Medications and Allergies Home Medications ?Medication ?Instructions ?Recorded ?Confirmed ?Type epinephrine 0.3 mg/0.3 mL 0.3 mg (0.3 mL) IM Q5-15M PRN 05/10/23 06/02/25 Rx injection, auto-injector (EpiPen hypersensitivity reaction #2 ea 2-Flo) escitalopram oxalate 5 mg tablet 5 mg PO DAILY #30 tabs 01/31/24 06/02/25 Rx ascorbic acid (vitamin C) 500 mg 500 mg PO DAILY 01/05/25 05/28/25 History capsule cholecalciferol (vitamin D3) 250 250 mcg PO DAILY 01/05/25 05/28/25 History mcg (10,000 unit) tablet cyanocobalamin (vitamin B-12) 1,000 mcg sublingual DAILY 01/05/25 05/28/25 History 1,000 mcg/mL sublingual drops multivitamin 1 tab PO DAILY 01/25/25 05/28/25 History cholecalciferol (vitamin D3) 1,250 1,250 mcg PO WEEKLY #8 caps 03/17/25 06/02/25 Rx mcg (50,000 unit) capsule triamcinolone acetonide 0.1 % 1 applic topical BID #15 grams 04/28/25 06/02/25 Rx topical ointment omeprazole 40 mg capsule,delayed 40 mg PO DAILY 06/02/25 06/02/25 History release oxycodone-acetaminophen 5 mg-325 1 tab PO Q6H PRN pain #20 tabs 06/03/25 Rx mg tablet New Prescriptions to Start Prescriptions: oxycodone-acetaminophen Damion Purvis Allergies Allergy/AdvReac Type Severity Reaction Status Date / Time bee venom protein (honey bee) Allergy Rash Verified 06/02/25 06:23 Discharge Plan Disposition Patient Disposition: Home, Self-Care Follow up Plan Prescriptions/Medication Reconciliation: New oxycodone-acetaminophen 5-325 mg tablet 1 tab PO Q6H PRN (Reason: pain) Qty: 20 0RF Continued escitalopram oxalate 5 mg tablet 5 mg PO DAILY Qty: 30 2RF Patient Comments: pt states she takes medication as needed multivitamin Tablet 1 tab PO DAILY triamcinolone acetonide 0.1 % ointment 1 applic topical BID Qty: 15 0RF epinephrine [EpiPen 2-Flo] 0.3 mg/0.3 mL auto-injector 0.3 mg IM Q5-15M PRN (Reason: hypersensitivity reaction) Qty: 2 0RF Rx Instructions: do not exceed 3 doses per episode cholecalciferol (vitamin D3) 250 mcg (10,000 unit) tablet 250 mcg PO DAILY ascorbic acid (vitamin C) 500 mg capsule 500 mg PO DAILY cyanocobalamin (vitamin B-12) 1,000 mcg/mL drops 1,000 mcg sublingual DAILY Patient Comments: pt states she takes medication as needed cholecalciferol (vitamin D3) 1,250 mcg (50,000 unit) capsule 1,250 mcg PO WEEKLY Qty: 8 2RF omeprazole 40 mg capsule,delayed release(DR/EC) 40 mg PO DAILY Problem Reconciliation Problems Reviewed?: Yes Patient Discharge Instructions ACTIVITY: No heavy lifting DIET: continue same diet Patient Instructions: How to Care for a Surgical Wound, Surgical Site Infection, Hysterectomy -- Laparoscopic Surgery, DI for Vaginal Hysterectomy Print Language: Urdu Providers Primary Care Provider: Katie Serrano Admit Provider: Damion Purvis Attending Provider: Damion Purvis
[2025-06-03] MEDS: OXYCODONE 5MG IMMEDIATE RELEASE TABLET 10 MG PO (09:19)
--- NOTE | 2025-06-04 10:30 | SW/DCPLANNER ---
Spoke with patient on the phone. Patient stated that she is doing good. Patient stated that she is aware of her upcoming appointment and that she will have to reschedule or see if she cant get it changed to an earlier appointment. Patient stated that she got her new medicine brought to her bed before she left. Patient stated that she has no concerns or questions at this time. Modesta Hooker
== END 2025-06-03 13:20 | disposition home or self-care (01) ==
LOC: 2ND 10:42
PROVIDERS: Admitting Provider Nurse Practitioner Obstetrics & Gynecology; PCP Nurse Practitioner Family; Visit Provider Nurse Practitioner Obstetrics & Gynecology
PROC: 0UT9FZZ Resection of Uterus, Via Natural or Artificial Opening With Percutaneous Endoscopic Assistance (ICD-10-PCS; CPT 58552; principal; 2025-06-02 07:30)
DX: D26.1 Other benign neoplasm of corpus uteri (principal); N83.8 Other noninflammatory disorders of ovary, fallopian tube and broad ligament; K21.9 Gastro-esophageal reflux disease without esophagitis; F41.9 Anxiety disorder, unspecified; J45.909 Unspecified asthma, uncomplicated; Z91.030 Bee allergy status; Z79.52 Long term (current) use of systemic steroids; Z79.899 Other long term (current) drug therapy
CPT/HCPCS: 58552; 96361 ×2; 96365; 96375; 96376; 36415; 80048; 85025; 86850; 87086; 96374; G0378; J0690; J1100; J1171; J1596; J1650; J1885; J2003; J2250; J2405; J2550; J2704; J2710; J2795; J3010; J7120